=== PATIENT | male | born 1950 | race Caucasian/White ===

== ENCOUNTER 2016-07-23 09:44 | Observation (INO) | payer BC ==
[~2016-07-23] VITALS: Ht 170.2 cm; Wt 80.9 kg
[2016-07-23] MEDS ORDERED: ADENOSINE 6 MG/2 ML VIAL IV ONE ×3 (09:47→11:00)
--- NOTE | 2016-07-23 10:02 | PHYS DOC ---
Adult General Chief Complaint Chief Complaint: SHORTNESS OF BREATH HPI HPI Patient is a 66 year old male who presents with palpitations and right jaw pain. He states he felt like his heart racing while he was doing water aerobics today. He states he's had this occur approximate 6-7 years ago and he was given a medicine the ER and sent home. Does have a history of smoking abuse however he quit back in 1978. He has a history of hypertension. He states he used to be on atenolol but now is on Procardia. He denies any nausea vomiting. Review of Systems Review of Systems Constitutional: Denies fever or chills [] Eyes: Denies change in visual acuity, redness, or eye pain [] HENT: Denies nasal congestion or sore throat [] Respiratory: Denies cough or shortness of breath [] Cardiovascular: No additional information not addressed in HPI [] GI: Denies abdominal pain, nausea, vomiting, bloody stools or diarrhea [] : Denies dysuria or hematuria [] Musculoskeletal: Denies back pain or joint pain [] Integument: Denies rash or skin lesions [] Neurologic: Denies headache, focal weakness or sensory changes [] Endocrine: Denies polyuria or polydipsia [] Current Medications Current Medications Current Medications Medications (Trade) Dose Ordered Sig/Sonu Start Time Stop Time Status Last Admin Dose Admin Adenosine (Adenocard) 12 mg 1X ONCE 07/23/16 11:00 07/23/16 11:01 DC 07/23/16 09:56 12 MG Allergies Allergies Allergies Coded Allergies Type Severity Reaction Last Updated Verified Penicillins Allergy Unknown 07/23/16 Yes Physical Exam Physical Exam Constitutional: Well developed, well nourished, no acute distress, non-toxic appearance. [] HENT: Normocephalic, atraumatic, bilateral external ears normal, oropharynx moist, no oral exudates, nose normal. [] Eyes: PERRLA, EOMI, conjunctiva normal, no discharge. [] Neck: Normal range of motion, no tenderness, supple, no stridor. [] Cardiovascular: Tachycardic with regular rhythm, no murmur [] Lungs & Thorax: Bilateral breath sounds clear to auscultation [] Abdomen: Bowel sounds normal, soft, no tenderness, no masses, no pulsatile masses. [] Skin: Warm, dry, no erythema, no rash. [] Back: No tenderness, no CVA tenderness. [] Extremities: No tenderness, no cyanosis, no clubbing, ROM intact, no edema. [] Neurologic: Alert and oriented X 3, normal motor function, normal sensory function, no focal deficits noted. [] Psychologic: Affect normal, judgement normal, mood normal. [] Current Patient Data Vital Signs Vital Signs Date Time Temp Pulse Resp B/P Pulse Ox O2 Delivery O2 Flow Rate FiO2 07/23/16 11:30 72 12 99/71 99 07/23/16 09:46 97.8 Room Air 97.8 Lab Values Laboratory Tests Test 07/23/16 09:50 07/23/16 11:20 White Blood Count 8.7x10^3/uL (4.0-11.0) Red Blood Count 5.50x10^6/uL (4.30-5.70) Hemoglobin 16.8g/dL (13.0-17.5) Hematocrit 49.9% (39.0-53.0) Mean Corpuscular Volume 91fL (79-100) Mean Corpuscular Hemoglobin 31pg (25-35) Mean Corpuscular Hemoglobin Concent 34g/dL (31-37) Red Cell Distribution Width 13.5% (11.5-14.5) Platelet Count 227x10^3/uL (140-400) Neutrophils (%) (Auto) 59% (31-73) Lymphocytes (%) (Auto) 28% (24-48) Monocytes (%) (Auto) 9% (0-9) Eosinophils (%) (Auto) 4% (0-3) H Basophils (%) (Auto) 0% (0-3) Neutrophils # (Auto) 5.1x10^3uL (1.8-7.7) Lymphocytes # (Auto) 2.4x10^3/uL (1.0-4.8) Monocytes # (Auto) 0.8x10^3/uL (0.0-1.1) Eosinophils # (Auto) 0.4x10^3/uL (0.0-0.7) Basophils # (Auto) 0.0x10^3/uL (0.0-0.2) Prothrombin Time 12.7SEC (11.7-14.0) Prothrombin Time INR 1.0 (0.8-1.1) Sodium Level 145mmol/L (136-145) Potassium Level 4.0mmol/L (3.5-5.1) Chloride Level 105mmol/L (98-107) Carbon Dioxide Level 24mmol/L (21-32) Anion Gap 16 (6-14) H Blood Urea Nitrogen 29mg/dL (8-26) H Creatinine 1.3mg/dL (0.7-1.3) Estimated GFR (Cockcroft-Gault) 55.4 Glucose Level 111mg/dL (70-99) H Calcium Level 9.6mg/dL (8.5-10.1) Magnesium Level 2.0mg/dL (1.8-2.4) Total Bilirubin 0.8mg/dL (0.2-1.0) Direct Bilirubin 0.1mg/dL (0.0-0.2) Aspartate Amino Transferase (AST) 32U/L (15-37) Alanine Aminotransferase (ALT) 32U/L (16-63) Alkaline Phosphatase 80U/L (46-116) Creatine Kinase 194U/L (39-308) Creatine Kinase MB (Mass) 1.5ng/mL (0.0-3.6) Creatine Kinase MB Relative Index 0.8% (0-4) Troponin I Quantitative < 0.017ng/mL (0.000-0.055) GX-Gyr-Z-Type Natriuretic Peptide 345pg/mL (0-124) H Total Protein 7.8g/dL (6.4-8.2) Albumin 4.2g/dL (3.4-5.0) Thyroid Stimulating Hormone (TSH) 2.574uIU/mL (0.358-3.74) Urine Collection Type Unknown Urine Color Yellow Urine Clarity Clear Urine pH 6.5 Urine Specific [place] 1.010 Urine Protein Negativemg/dL (NEG-TRACE) Urine Glucose (UA) Negativemg/dL (NEG) Urine Ketones (Stick) Negativemg/dL (NEG) Urine Blood Negative (NEG) Urine Nitrite Negative (NEG) Urine Bilirubin Negative (NEG) Urine Urobilinogen Dipstick 0.2mg/dL (0.2 mg/dL) Urine Leukocyte Esterase Negative (NEG) Urine RBC Rare/HPF (0-2) Urine WBC Rare/HPF (0-4) Urine Squamous Epithelial Cells None/LPF Urine Bacteria Few/HPF (0-FEW) Urine Hyaline Casts Few/HPF Urine Mucus Slight/LPF Urine Opiates Screen Neg (NEG) Urine Methadone Screen Neg (NEG) Urine Barbiturates Neg (NEG) Urine Phencyclidine Screen Neg (NEG) Urine Amphetamine/Methamphetamine Neg (NEG) Urine Benzodiazepines Screen Neg (NEG) Urine Cocaine Screen Neg (NEG) Urine Cannabinoids Screen Neg (NEG) Urine Ethyl Alcohol Neg (NEG) Laboratory Tests 07/23/16 09:50 Laboratory Tests 07/23/16 09:50 EKG EKG EKG at 948 showed a rate of 183 bpm with supraventricular tachycardia, left axis deviation, no ST elevations, as interpreted by me. EKG at 958 after adenosine, showed sinus tachycardia [address] elevations or T-wave inversions, left axis deviation, as interpreted by me. Radiology/Procedures Radiology/Procedures [facility] [address] [place], [place] [id number] IMAGING REPORT Signed PATIENT: LAURA NEVILLE ACCOUNT: [id number] : 1950 LOCATION: ER AGE: 66 SEX: M EXAM STATUS: PRE ER ORD. PHYSICIAN: LUCITA LEACH MD REASON: chest pain PROCEDURE: PORTABLE CHEST 1V Exam performed: One view chest. Indication: chest pain Date of Service: 07/23/2016 12:02 PM Comparison: None available. Single AP upright portable view chest findings: Cardiomediastinal silhouette is within limits of normal. No acute infiltrates, effusion or pneumothorax is detected. The bony structures are normal. Impression: No acute cardiopulmonary process is detected. DICTATED and SIGNED BY: SOLITARIO LARSON MD DATE: 07/23/16 1036 CC: LUCITA LEACH MD ~ Impressions: SVT Course & Med Decision Making Course & Med Decision Making Pertinent Labs and Imaging studies reviewed. (See chart for details) Patient presented with SVT, EKG confirmed this. He was given milligrams of adenosine and then repeated with 12 mg of adenosine and then had conversion to normal sinus rhythm. His labs, chest x-ray did not show any acute abdomen allergies. Patient be admitted to the hospitalist with cardiology consultation. The patient's agreeable plans in stable condition at this time. With Dr. Casas regarding admission. 45 minutes critical care time was used on this patient excluding procedures. Dragon Disclaimer Dragon Disclaimer This electronic medical record was generated, in whole or in part, using a voice recognition dictation system. Departure Departure Impression: Primary Impression: SVT (supraventricular tachycardia) Disposition: ADMITTED INPATIENT Admitting Physician: Tobias Serna Condition: STABLE LUCITA LEACH MD Jul 23, 2016 10:02
--- NOTE | 2016-07-23 10:07 | EKG ---
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
[2016-07-23 10:12] LABS: BASO % 0 % (0-3); EOS % 4 % (0-3); HEMATOCRIT 49.9 % (39.0-53.0); HEMOGLOBIN 16.8 g/dL (13.0-17.5); LYMPH # 2.4 x10^3/uL (1.0-4.8); LYMPH % 28 % (24-48); MEAN CORPUSCULAR HEMOGLOBIN 31 pg (25-35); MEAN CORPUSCULAR HGB CONC 34 g/dL (31-37); MEAN CORPUSCULAR VOLUME 91 fL (79-100); MONO % 9 % (0-9); NEUT % 59 % (31-73); PLATELET COUNT 227 x10^3/uL (140-400); RED CELL DISTRIBUTION WIDTH 13.5 % (11.5-14.5); WHITE BLOOD COUNT 8.7 x10^3/uL (4.0-11.0)
[2016-07-23 10:27] LABS: CALCIUM 9.6 mg/dL (8.5-10.1); CREATININE 1.3 mg/dL (0.7-1.3); GFR 55.4
[2016-07-23 10:30] LABS: PROTHROMBIN TIME PATIENT 12.7 SEC (11.7-14.0)
[2016-07-23 10:32] LABS: ALBUMIN 4.2 g/dL (3.4-5.0); DIRECT BILIRUBIN 0.1 mg/dL (0.0-0.2); TOTAL BILIRUBIN 0.8 mg/dL (0.2-1.0); TOTAL PROTEIN 7.8 g/dL (6.4-8.2)
--- NOTE | 2016-07-23 10:39 | RAD ---
Exam performed: One view chest. Indication: chest pain Date of Service: 07/23/2016 12:02 PM Comparison: None available. Single AP upright portable view chest findings: Cardiomediastinal silhouette is within limits of normal. No acute infiltrates, effusion or pneumothorax is detected. The bony structures are normal. Impression: No acute cardiopulmonary process is detected.
[2016-07-23 10:41] LABS: CKMB INDEX 0.8 % (0-4); CKMB MASS 1.5 ng/mL (0.0-3.6)
--- NOTE | 2016-07-23 11:30 | EKG ---
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 RI6.01 Unconfirmed report No previous ECG available for comparison Electronically Signed On 07-29-2016 10:51:40 SOFTWARE DEPLOYMENT ENGINEER by Jcarlos Delong
[2016-07-23 11:34] LABS: BILIRUBIN,URINE NEGATIVE (NEG); GLUCOSE,URINE NEGATIVE (NEG); NITRITE,URINE NEGATIVE (NEG); PH,URINE 6.5; PROTEIN,URINE NEGATIVE (NEG-TRACE); UROBILINOGEN,URINE 0.2 mg/dL (0.2 mg/dL)
[2016-07-23 11:40] LABS: BARBITURATES NEG (NEG); BENZODIAZEPINES NEG (NEG); CANNABINOIDS NEG (NEG); COCAINE NEG (NEG); METHADONE NEG (NEG); OPIATES NEG (NEG); PHENCYCLIDINE NEG (NEG)
[2016-07-23 11:49] LABS: BACTERIA,URINE FEW /HPF (0-FEW); ETHANOL, URINE NEG (NEG); RBC,URINE RARE /HPF (0-2); WBC,URINE RARE /HPF (0-4)
--- NOTE | 2016-07-23 12:44 | PDOC2 ---
CARDIAC CONSULT DATE OF CONSULT Date of Consult DATE: 07/23/16 TIME: 12:40 REASON FOR CONSULT Reason for Consult: SVT REFERRING PHYSICIAN Referring Physician: Dr. Sanchez SOURCE Source: Chart review, Patient HISTORY OF PRESENT ILLNESS HISTORY OF PRESENT ILLNESS This is a 66 yo male who presented with complaints of palpitations. [facility] [place] [facility] [place] be began to feel uncomfortable in his chest. Reports he felt like he was "swallowing air" and was unable to take a deep breath. [place] dizzy and "stiff in the chest". Decided to come to the emergency room for further evaluation. Noted to by in SVT upon arrival. Converted to SR in ED after 6mg follow by 12mg of adenosine. Patient reports similar symptoms approximately 7-[address] on Atenolol. Lost 40-50lbs and was taken off Atenolol. Now on Procardia for HTN. No recent cardiac workup. Is compliant with medications. PAST MEDICAL HISTORY Cardiovascular: HTN Pulmonary: No pertinent hx CENTRAL NERVOUS SYSTEM: Other (no pertinent hx) GI: No pertinent hx Heme/Onc: No pertinent hx Hepatobiliary: No pertinent hx Psych: No pertinent hx Musculoskeletal: Osteoarthritis Infectious disease: No pertinent hx ENT: No pertinent hx Renal/: No pertinent hx Endocrine: No pertinent hx Dermatology: No pertinent hx PAST SURGICAL HISTORY Past Surgical History: Hernia Repair, Other (left ankle sx) FAMILY HISTORY Family History: Coronary Artery Disease (mother and father ), Hypertension SOCIAL HISTORY Smoke: No ALCOHOL: none Drugs: None Lives: with Family CURRENT MEDICATIONS CURRENT MEDICATIONS Current Medications Medications (Trade) Dose Ordered Sig/Sonu Route PRN Reason Start Time Stop Time Status Last Admin Dose Admin Adenosine (Adenocard) 6 mg 1X ONCE IV 07/23/16 11:00 07/23/16 11:01 DC 07/23/16 09:54 Adenosine (Adenocard) 12 mg 1X ONCE IV 07/23/16 11:00 07/23/16 11:01 DC 07/23/16 09:56 ALLERGIES ALLERGIES: Coded Allergies: Penicillins (Verified Allergy, Unknown, 07/23/16) ROS Review of System 14 point ROS conducted with pertinent positives noted above in HPI PHYSICAL EXAM General: Alert, Oriented X3, Cooperative, No acute distress HEENT: Atraumatic, Mucous membr. moist/pink Lungs: Clear to auscultation, Normal air movement Heart: Regular rate, Normal S1, Normal S2, No murmurs Abdomen: Soft, No tenderness Extremities: No cyanosis, No edema, Normal pulses Skin: No significant lesion Neuro: Normal speech, Sensation intact Psych/Mental Status: Mental status NL, Mood NL MUSCULOSKELETAL: Osteoarthritic changes both hands VITALS VITALS Vital Signs Date Time Temp Pulse Resp B/P Pulse Ox O2 Delivery O2 Flow Rate FiO2 07/23/16 11:30 72 12 99/71 99 07/23/16 09:46 97.8 Room Air 97.8 LABS Lab: Laboratory Tests Test 07/23/16 09:50 07/23/16 11:20 White Blood Count 8.7x10^3/uL (4.0-11.0) Red Blood Count 5.50x10^6/uL (4.30-5.70) Hemoglobin 16.8g/dL (13.0-17.5) Hematocrit 49.9% (39.0-53.0) Mean Corpuscular Volume 91fL (79-100) Mean Corpuscular Hemoglobin 31pg (25-35) Mean Corpuscular Hemoglobin Concent 34g/dL (31-37) Red Cell Distribution Width 13.5% (11.5-14.5) Platelet Count 227x10^3/uL (140-400) Neutrophils (%) (Auto) 59% (31-73) Lymphocytes (%) (Auto) 28% (24-48) Monocytes (%) (Auto) 9% (0-9) Eosinophils (%) (Auto) 4% (0-3) Basophils (%) (Auto) 0% (0-3) Neutrophils # (Auto) 5.1x10^3uL (1.8-7.7) Lymphocytes # (Auto) 2.4x10^3/uL (1.0-4.8) Monocytes # (Auto) 0.8x10^3/uL (0.0-1.1) Eosinophils # (Auto) 0.4x10^3/uL (0.0-0.7) Basophils # (Auto) 0.0x10^3/uL (0.0-0.2) Prothrombin Time 12.7SEC (11.7-14.0) Prothromb Time International Ratio 1.0 (0.8-1.1) Sodium Level 145mmol/L (136-145) Potassium Level 4.0mmol/L (3.5-5.1) Chloride Level 105mmol/L (98-107) Carbon Dioxide Level 24mmol/L (21-32) Anion Gap 16 (6-14) Blood Urea Nitrogen 29mg/dL (8-26) Creatinine 1.3mg/dL (0.7-1.3) Estimated GFR (Cockcroft-Gault) 55.4 Glucose Level 111mg/dL (70-99) Calcium Level 9.6mg/dL (8.5-10.1) Magnesium Level 2.0mg/dL (1.8-2.4) Total Bilirubin 0.8mg/dL (0.2-1.0) Direct Bilirubin 0.1mg/dL (0.0-0.2) Aspartate Amino Transf (AST/SGOT) 32U/L (15-37) Alanine Aminotransferase (ALT/SGPT) 32U/L (16-63) Alkaline Phosphatase 80U/L (46-116) Creatine Kinase 194U/L (39-308) Creatine Kinase MB (Mass) 1.5ng/mL (0.0-3.6) Creatine Kinase MB Relative Index 0.8% (0-4) Troponin I Quantitative < 0.017ng/mL (0.000-0.055) ND-Wia-D-Type Natriuretic Peptide 345pg/mL (0-124) Total Protein 7.8g/dL (6.4-8.2) Albumin 4.2g/dL (3.4-5.0) Thyroid Stimulating Hormone (TSH) 2.574uIU/mL (0.358-3.74) Urine Collection Type Unknown Urine Color Yellow Urine Clarity Clear Urine pH 6.5 Urine Specific [place] 1.010 Urine Protein Negativemg/dL (NEG-TRACE) Urine Glucose (UA) Negativemg/dL (NEG) Urine Ketones (Stick) Negativemg/dL (NEG) Urine Blood Negative (NEG) Urine Nitrite Negative (NEG) Urine Bilirubin Negative (NEG) Urine Urobilinogen Dipstick 0.2mg/dL (0.2 mg/dL) Urine Leukocyte Esterase Negative (NEG) Urine RBC Rare/HPF (0-2) Urine WBC Rare/HPF (0-4) Urine Squamous Epithelial Cells None/LPF Urine Bacteria Few/HPF (0-FEW) Urine Hyaline Casts Few/HPF Urine Mucus Slight/LPF Urine Opiates Screen Neg (NEG) Urine Methadone Screen Neg (NEG) Urine Barbiturates Neg (NEG) Urine Phencyclidine Screen Neg (NEG) Urine Amphetamine/Methamphetamine Neg (NEG) Urine Benzodiazepines Screen Neg (NEG) Urine Cocaine Screen Neg (NEG) Urine Cannabinoids Screen Neg (NEG) Urine Ethyl Alcohol Neg (NEG) ASSESSMENT/PLAN ASSESSMENT/PLAN 1. SVT Mg, TSH WNL check echo, lipids stop Procardia. start low-dose BB for rate suppression plan for event monitor at discharge consider for outpatient MPI given significant family h/o CAD and risk factors. 2. Hypertension controlled Problems: YOAN BAZAN APRN Jul 23, 2016 12:44
--- NOTE | 2016-07-23 12:56 | ACF ---
Admission Forms Criteria SUPRAVENTRICULAR ARRHYTHMIAS Clinical Indications for Admission to Inpatient Care (Place 'X' for any and all applicable criteria): Admission is indicated by ANY ONE of the following (1)(2): [X]I. Arrhythmia causing significant symptoms or findings as indicated by ANY ONE of the following: [ ]a) Chest pain [ ]b) Myocardial ischemia [ ]c) Altered mental status [ ]d) Dizziness, weakness, or light-headedness [X]e) Dyspnea or hypoxemia [ ]f) Heart failure (eg, pulmonary edema)(11) [ ]II. Initiation of antiarrhythmic drug therapy is needed in patient at high risk of adverse events as indicated by ANY ONE of the following: [ ]a) Significant structural heart disease (eg, aortic stenosis, reduced ejection fraction, cardiomyopathy, congenital heart disease) [ ]b) Underlying sinus node or atrioventricular conduction disturbances [ ]c) Prolonged QT interval [ ]d) Need for treatment with antiarrhythmic that have significant proarrhythmic potential ( procainamide) [ ]e) Patient whose sinus rhythm has not been observed on ECG [ ]III. Inpatient admission required rather than observation care because of ANY ONE of the following: [ ]a) Syncope [ ]b) Patient has automatic implanted cardioverter-defibrillator that is repeatedly firing, malfunctioning, or in need of immediate adjustment of settings beyond scope of ambulatory or observation care. [ ]c) Hemodynamic instability that is severe or persistent [ ]d) Unstable cardiac conduction defects indicated by ANY ONE of the following(19)(20)(21): [ ]a) Type II second-degree atrioventricular block [ ]b) Third-degree atrioventricular block [ ]C) New-onset left bundle branch block with suspected myocardial ischemia [ ]e) Severe electrolyte abnormalities requiring inpatient care [ ]f) Continuous intravenous infusion of anticoagulation, platelet inhibitor, vasoactive, or antiarrhythmic medication(14) [ ]g) Pulmonary artery catheter monitoring [ ]h) Repeat cardioversion necessary [ ]i) Other condition, treatment or monitoring requiring inpatient admission [ ]IV. Underlying medical condition that necessitates inpatient care (eg, thyrotoxicosis, severe acidosis) Extended stay beyond goal length of stay may be needed for(1)(17)(18): [ ]a) Persistent hemodynamic instability or continued severe arrhythmia [ ]b) Continued monitoring during initiation of certain medications (eg, some antiarrhythmics)(17)(19) [ ]c) Precipitating cause requires ongoing inpatient care (eg, severe electrolyte abnormality, systemic infection, acidosis) [ ]d) Unstable comorbidities The original [facility] content created by [facility] has been revised. The portions of the content which have been revised are identified through the use of italic text or in bold, and [facility] has neither reviewed nor approved the modified material. All other unmodified content is copyright [facility]. Please see references footnoted in the original [facility] edition 2016 Admission Criteria Met?: Yes ALEKS PARRISH Jul 23, 2016 12:56
[2016-07-23 13:30] VITALS: BP 144/95
[2016-07-23] MEDS ORDERED: BENA20TA2 PO (14:04)
[2016-07-23] MEDS ORDERED: NIFE30TA17 PO (14:04)
[2016-07-23] MEDS ORDERED: MELO-156 PO (14:04)
[2016-07-23 15:30] VITALS: BP 135/78
[2016-07-23] MEDS: METOPROLOL SUCC 24HR ER 25 MG TAB.ER.24H. PO SCH (15:57)
--- NOTE | 2016-07-23 16:13 | CARD ---
APPROVED REPORT EXAM: Two-dimensional and M-mode echocardiogram with Doppler and color Doppler. Other Information Quality : Good INDICATION Arrhythmia SVT 2D DIMENSIONS RVDd3.2 (2.9-3.5cm)Left Atrium(2D)3.9 (1.6-4.0cm) IVSd1.1 (0.7-1.1cm)Aortic Root(2D)3.6 (2.0-3.7cm) LVDd5.4 (3.9-5.9cm)LVOT Diameter2.2 (1.8-2.4cm) PWd1.0 (0.7-1.1cm)LVDs3.4 (2.5-4.0cm) FS (%) 30.0 %SV92.4 ml LVEF(%)60.0 (>50%) Aortic Valve AoV Peak Edenilson.105.8cm/sAoV VTI19.3cm AO Peak GR.4.5mmHgLVOT VTI 14.98cm AO Mean GR.2mmHg Mitral Valve MV E Bpbefpcy00.5cm/sMV DECEL [id number] MV A Iqlverch68.6cm/sE/A Ratio0.6 TDI Lateral E' P. V6.63cm/sMedial E' P. V5.34cm/s E/Lateral E'6.0E/Medial E'7.4 Tricuspid Valve TR P. Mzhedvpo241gh/sRAP AXEZWQVF1vePq TR Peak Gr.26lpOhJPUG85rsYp Pulmonary Vein S1 Eqwifhuw19.5cm/sS2 Lwnjbgqf50.48cm/s D2 Owwylmpy18.5cm/sPVa hpcfnwar393usmi LEFT VENTRICLE The left ventricle is normal size. There is normal left ventricular wall thickness. The left ventricu lar systolic function is normal and the ejection fraction is within normal range. The Ejection Fracti on is 55-60%. There is normal LV segmental wall motion. Transmitral Doppler flow pattern is Grade I-a bnormal relaxation pattern. RIGHT VENTRICLE The right ventricle is normal size. The right ventricular systolic function is normal. ATRIA The left atrium size is normal. The right atrium size is normal. The interatrial septum is intact wit h no evidence for an atrial septal defect or patent foramen ovale as noted on 2-D or Doppler imaging. AORTIC VALVE The aortic valve is calcified but opens well. Doppler and Color Flow revealed trace aortic regurgitat ion. There is no significant aortic valvular stenosis. MITRAL VALVE The mitral valve is normal in structure and function. There is no evidence of mitral valve prolapse. There is no mitral valve stenosis. Doppler and Color Flow revealed no mitral valve regurgitation note d. TRICUSPID VALVE The tricuspid valve is normal in structure and function. Doppler and Color Flow revealed trace tricus pid regurgitation. The PA pressure was estimated at 25 mmHg. There is no tricuspid valve stenosis. PULMONIC VALVE The pulmonary valve is normal in structure and function. Doppler and Color Flow revealed trace pulmon ic valvular regurgitation. There is no pulmonic valvular stenosis. GREAT VESSELS The aortic root is mildly enlarged at 3.6 cm. The ascending aorta is moderately dilated at 4.0 cm. Th e IVC is normal in size and collapses >50% with inspiration. PERICARDIAL EFFUSION There is no evidence of significant pericardial effusion. Critical Notification Critical Value: No <Conclusion> The left ventricle is normal size. The left ventricular systolic function is normal and the ejection fraction is within normal range. The Ejection Fraction is 55-60%. There is no significant aortic valvular stenosis. Doppler and Color Flow revealed trace aortic regurgitation. Doppler and Color Flow revealed no mitral valve regurgitation noted. Doppler and Color Flow revealed trace tricuspid regurgitation. The PA pressure was estimated at 25 mmHg.
--- NOTE | 2016-07-23 17:10 | PDOC1 ---
History and Physical Past Medical History Cardiovascular: HTN Pulmonary: No pertinent hx CENTRAL NERVOUS SYSTEM: Other (no pertinent hx) GI: No pertinent hx Heme/Onc: No pertinent hx Hepatobiliary: No pertinent hx Psych: No pertinent hx Infectious disease: No pertinent hx ENT: No pertinent hx Renal/: No pertinent hx Endocrine: No pertinent hx Dermatology: No pertinent hx Past Surgical History Past Surgical History: Hernia Repair, Other (left ankle sx) Family History Family History: Coronary Artery Disease (mother and father ), Hypertension Social History Smoke: No ALCOHOL: none Drugs: None Current Problem List Problem List Problems Medical Problems: (1) SVT (supraventricular tachycardia) Status: Acute Current Medications Current Medications Current Medications Medications (Trade) Dose Ordered Sig/Sonu Start Time Stop Time Status Last Admin Dose Admin Adenosine (Adenocard) 12 mg 1X ONCE 07/23/16 11:00 07/23/16 11:01 DC 07/23/16 09:56 12 MG Metoprolol Succinate (Toprol Xl) 12.5 mg DAILY 07/23/16 15:00 07/23/16 15:57 12.5 MG Allergies Allergies Allergies Coded Allergies Type Severity Reaction Last Updated Verified Penicillins Allergy Unknown 07/23/16 Yes ROS Review of System CONSTITUTIONAL: No fever or chills EYES: No recent changes SKIN: No rash or itching CARDIOVASCULAR: No chest pain, syncope, but palpitations, RESPIRATORY: No SOB or cough GASTROINTESTINAL: No nausea, vomiting or abdominal pain NEUROLOGICAL: No headaches or weakness ENDOCRINE: No cold or heat intolerance GENITOURINARY: No urgency or frequency of urination MUSCULOSKELETAL: No back pain or joint pain LYMPHATICS: No enlarged lymph nodes PSYCHIATRIC: No anxiety or depression Physical Exam Physical Exam GEN.: No apparent distress. Alert and oriented. HEENT: Head is normocephalic, atraumatic NECK: Supple. LUNGS: Clear to auscultation. HEART: RRR, S1, S2 present. Peripheral pulses intact ABDOMEN: Soft, nontender. Positive bowel sounds. EXTREMITIES: Without any cyanosis. NEUROLOGIC: Normal speech, normal tone PSYCHIATRIC: Normal affect, normal mood. SKIN: No ulcerations Vitals Vitals Vital Signs Date Time Temp Pulse Resp B/P Pulse Ox O2 Delivery O2 Flow Rate FiO2 07/23/16 15:57 63 135/78 07/23/16 15:30 98.0 18 97 Room Air 98.0 Labs Labs Laboratory Tests Test 07/23/16 09:50 07/23/16 11:20 White Blood Count 8.7x10^3/uL (4.0-11.0) Red Blood Count 5.50x10^6/uL (4.30-5.70) Hemoglobin 16.8g/dL (13.0-17.5) Hematocrit 49.9% (39.0-53.0) Mean Corpuscular Volume 91fL (79-100) Mean Corpuscular Hemoglobin 31pg (25-35) Mean Corpuscular Hemoglobin Concent 34g/dL (31-37) Red Cell Distribution Width 13.5% (11.5-14.5) Platelet Count 227x10^3/uL (140-400) Neutrophils (%) (Auto) 59% (31-73) Lymphocytes (%) (Auto) 28% (24-48) Monocytes (%) (Auto) 9% (0-9) Eosinophils (%) (Auto) 4% (0-3) Basophils (%) (Auto) 0% (0-3) Neutrophils # (Auto) 5.1x10^3uL (1.8-7.7) Lymphocytes # (Auto) 2.4x10^3/uL (1.0-4.8) Monocytes # (Auto) 0.8x10^3/uL (0.0-1.1) Eosinophils # (Auto) 0.4x10^3/uL (0.0-0.7) Basophils # (Auto) 0.0x10^3/uL (0.0-0.2) Prothrombin Time 12.7SEC (11.7-14.0) Prothromb Time International Ratio 1.0 (0.8-1.1) Sodium Level 145mmol/L (136-145) Potassium Level 4.0mmol/L (3.5-5.1) Chloride Level 105mmol/L (98-107) Carbon Dioxide Level 24mmol/L (21-32) Anion Gap 16 (6-14) Blood Urea Nitrogen 29mg/dL (8-26) Creatinine 1.3mg/dL (0.7-1.3) Estimated GFR (Cockcroft-Gault) 55.4 Glucose Level 111mg/dL (70-99) Calcium Level 9.6mg/dL (8.5-10.1) Magnesium Level 2.0mg/dL (1.8-2.4) Total Bilirubin 0.8mg/dL (0.2-1.0) Direct Bilirubin 0.1mg/dL (0.0-0.2) Aspartate Amino Transf (AST/SGOT) 32U/L (15-37) Alanine Aminotransferase (ALT/SGPT) 32U/L (16-63) Alkaline Phosphatase 80U/L (46-116) Creatine Kinase 194U/L (39-308) Creatine Kinase MB (Mass) 1.5ng/mL (0.0-3.6) Creatine Kinase MB Relative Index 0.8% (0-4) Troponin I Quantitative < 0.017ng/mL (0.000-0.055) QL-Gsl-U-Type Natriuretic Peptide 345pg/mL (0-124) Total Protein 7.8g/dL (6.4-8.2) Albumin 4.2g/dL (3.4-5.0) Thyroid Stimulating Hormone (TSH) 2.574uIU/mL (0.358-3.74) Urine Collection Type Unknown Urine Color Yellow Urine Clarity Clear Urine pH 6.5 Urine Specific [place] 1.010 Urine Protein Negativemg/dL (NEG-TRACE) Urine Glucose (UA) Negativemg/dL (NEG) Urine Ketones (Stick) Negativemg/dL (NEG) Urine Blood Negative (NEG) Urine Nitrite Negative (NEG) Urine Bilirubin Negative (NEG) Urine Urobilinogen Dipstick 0.2mg/dL (0.2 mg/dL) Urine Leukocyte Esterase Negative (NEG) Urine RBC Rare/HPF (0-2) Urine WBC Rare/HPF (0-4) Urine Squamous Epithelial Cells None/LPF Urine Bacteria Few/HPF (0-FEW) Urine Hyaline Casts Few/HPF Urine Mucus Slight/LPF Urine Opiates Screen Neg (NEG) Urine Methadone Screen Neg (NEG) Urine Barbiturates Neg (NEG) Urine Phencyclidine Screen Neg (NEG) Urine Amphetamine/Methamphetamine Neg (NEG) Urine Benzodiazepines Screen Neg (NEG) Urine Cocaine Screen Neg (NEG) Urine Cannabinoids Screen Neg (NEG) Urine Ethyl Alcohol Neg (NEG) Laboratory Tests Test 07/23/16 09:50 07/23/16 11:20 White Blood Count 8.7x10^3/uL (4.0-11.0) Red Blood Count 5.50x10^6/uL (4.30-5.70) Hemoglobin 16.8g/dL (13.0-17.5) Hematocrit 49.9% (39.0-53.0) Mean Corpuscular Volume 91fL (79-100) Mean Corpuscular Hemoglobin 31pg (25-35) Mean Corpuscular Hemoglobin Concent 34g/dL (31-37) Red Cell Distribution Width 13.5% (11.5-14.5) Platelet Count 227x10^3/uL (140-400) Neutrophils (%) (Auto) 59% (31-73) Lymphocytes (%) (Auto) 28% (24-48) Monocytes (%) (Auto) 9% (0-9) Eosinophils (%) (Auto) 4% (0-3) Basophils (%) (Auto) 0% (0-3) Neutrophils # (Auto) 5.1x10^3uL (1.8-7.7) Lymphocytes # (Auto) 2.4x10^3/uL (1.0-4.8) Monocytes # (Auto) 0.8x10^3/uL (0.0-1.1) Eosinophils # (Auto) 0.4x10^3/uL (0.0-0.7) Basophils # (Auto) 0.0x10^3/uL (0.0-0.2) Prothrombin Time 12.7SEC (11.7-14.0) Prothromb Time International Ratio 1.0 (0.8-1.1) Sodium Level 145mmol/L (136-145) Potassium Level 4.0mmol/L (3.5-5.1) Chloride Level 105mmol/L (98-107) Carbon Dioxide Level 24mmol/L (21-32) Anion Gap 16 (6-14) Blood Urea Nitrogen 29mg/dL (8-26) Creatinine 1.3mg/dL (0.7-1.3) Estimated GFR (Cockcroft-Gault) 55.4 Glucose Level 111mg/dL (70-99) Calcium Level 9.6mg/dL (8.5-10.1) Magnesium Level 2.0mg/dL (1.8-2.4) Total Bilirubin 0.8mg/dL (0.2-1.0) Direct Bilirubin 0.1mg/dL (0.0-0.2) Aspartate Amino Transf (AST/SGOT) 32U/L (15-37) Alanine Aminotransferase (ALT/SGPT) 32U/L (16-63) Alkaline Phosphatase 80U/L (46-116) Creatine Kinase 194U/L (39-308) Creatine Kinase MB (Mass) 1.5ng/mL (0.0-3.6) Creatine Kinase MB Relative Index 0.8% (0-4) Troponin I Quantitative < 0.017ng/mL (0.000-0.055) GC-Sxa-G-Type Natriuretic Peptide 345pg/mL (0-124) Total Protein 7.8g/dL (6.4-8.2) Albumin 4.2g/dL (3.4-5.0) Thyroid Stimulating Hormone (TSH) 2.574uIU/mL (0.358-3.74) Urine Collection Type Unknown Urine Color Yellow Urine Clarity Clear Urine pH 6.5 Urine Specific [place] 1.010 Urine Protein Negativemg/dL (NEG-TRACE) Urine Glucose (UA) Negativemg/dL (NEG) Urine Ketones (Stick) Negativemg/dL (NEG) Urine Blood Negative (NEG) Urine Nitrite Negative (NEG) Urine Bilirubin Negative (NEG) Urine Urobilinogen Dipstick 0.2mg/dL (0.2 mg/dL) Urine Leukocyte Esterase Negative (NEG) Urine RBC Rare/HPF (0-2) Urine WBC Rare/HPF (0-4) Urine Squamous Epithelial Cells None/LPF Urine Bacteria Few/HPF (0-FEW) Urine Hyaline Casts Few/HPF Urine Mucus Slight/LPF Urine Opiates Screen Neg (NEG) Urine Methadone Screen Neg (NEG) Urine Barbiturates Neg (NEG) Urine Phencyclidine Screen Neg (NEG) Urine Amphetamine/Methamphetamine Neg (NEG) Urine Benzodiazepines Screen Neg (NEG) Urine Cocaine Screen Neg (NEG) Urine Cannabinoids Screen Neg (NEG) Urine Ethyl Alcohol Neg (NEG) VTE Prophylaxis Ordered VTE Prophylaxis Devices: No VTE Pharmacological Prophylaxi: No BERNA VELOZ MD Jul 23, 2016 17:10
[2016-07-23] MEDS ORDERED: MELOXICAM 7.5 MG TABLET PO PRN (17:15)
--- NOTE | 2016-07-23 17:44 | HP ---
ADMIT DATE: 07/23/2016 CHIEF COMPLAINT: SVT. HISTORY OF PRESENT ILLNESS: A 66-year-old male patient with prior history of SVT nearly few years ago, presented to the ER with complaints of palpitations, symptoms started this morning while he was doing aerobic water exercises. The patient felt like ____ air with some dizziness and not able to breathe well. The patient's symptoms persisted and he came to the ER, was diagnosed with SVT upon arrival and he received 6 mg and 12 mg of adenosine, symptoms resolved. The patient had similar symptoms in the past. He denies any new changes in his lifestyle. PAST MEDICAL HISTORY AND REVIEW OF SYSTEMS: Please see my electronic H and P. LABORATORY FINDINGS: WBC 8.7, hemoglobin is 16.8, MCV 91, platelets 227. Chemistry: Sodium 145, potassium 4.0, chloride 104, carbon dioxide 24, gap is 16, creatinine 1.3. Troponin is less than 0.017. TSH 2.54. PT 12.7, INR is 1.0. Toxicology is negative. Urine protein negative, nitrites negative, leukocyte esterase negative. IMAGING STUDIES: Chest x-ray is no acute cardiopulmonary process seen. ASSESSMENT AND PLAN: 1. Supraventricular tachycardia, present on admission. 2. Hypertension. PLAN: His symptoms have been controlled so far with adenosine received in the ER. Currently, the patient is on telemetry. We will continue to do that and monitor his electrolytes so far his electrolytes such as magnesium and potassium, has been within normal range. Troponin is also normal. Echocardiogram has been ordered. Final report pending. Awaiting final Cardiology recommendations, anticipated discharge in a.m. if the patient's symptoms are improving and possible stress test as an outpatient. BERNA VELOZ MD DR: ALEX/torey JOB#: [id number] / [id number] LENORE
[2016-07-23 19:40] VITALS: BP 122/75
[2016-07-23 22:50] VITALS: BP 121/77
[2016-07-24 02:40] VITALS: BP 120/79
[2016-07-24 07:59] VITALS: BP 140/88
[2016-07-24] MEDS: METOPROLOL SUCC 24HR ER 25 MG TAB.ER.24H. PO SCH (08:50)
[2016-07-24] MEDS ORDERED: LISINOPRIL 20 MG TABLET PO SCH (09:00)
[2016-07-24] MEDS ORDERED: NIFEDIPINE ER 30 MG TAB.ER.24H PO SCH (09:00)
[2016-07-24 10:40] VITALS: BP 140/90
--- NOTE | 2016-07-24 11:33 | PDOC ---
CARDIO Progress Notes Date and Time Date of Service 07/24/16 Time of Evaluation 1030 Subjective Subjective: No Chest Pain, No shortness of breath, No Palpitations, No Dizziness Vitals Vitals Vital Signs Date Time Temp Pulse Resp B/P Pulse Ox O2 Delivery O2 Flow Rate FiO2 07/24/16 10:40 98.6 67 17 140/90 98 Room Air 98.6 Weight Weight [ ] Input and Output Intake and Output Intake and Output 07/24/16 07:00 Intake Total 580 ml Balance 580 ml Intake Oral 580 ml # Voids 4 Laboratory Labs Laboratory Tests Test 07/23/16 18:45 07/24/16 04:13 Troponin I Quantitative 0.679ng/mL (0.000-0.055) 0.418ng/mL (0.000-0.055) Triglycerides Level 101mg/dL (0-150) Cholesterol Level 184mg/dL (0-200) LDL Cholesterol, Calculated 127mg/dL (0-100) VLDL Cholesterol, Calculated 20mg/dL (0-40) HDL Cholesterol 37mg/dL (40-60) Cholesterol/HDL Ratio 5.0 Physical Exam HEENT: Neck Supple W Full Motion Chest: Symmetric LUNGS: Clear to Auscultation Heart: S1S2, RRR Abdomen: Normal Aortic Impulse Extremities: 2+ Dorsalis Pedis, No Edema Neurology: alert, oriented, follow commands Assessment Assessment 1. SVT no further arrhythmias noted overnight; continue metoprolol for rate control. echo revealed normal systolic function with an EF of 55-60% event monitor at discharge f/u in our office in 4 weeks as scheduled. 2. Hypertension controlled 3. Mild troponin elevation peak 0.679- suspected type II, demand ischemia related to SVT stable. CP free echo without and WMA consider outpatient MPI YOAN BAZAN APRN Jul 24, 2016 11:33
--- NOTE | 2016-07-24 13:51 | PDOC ---
PROGRESS NOTES Chief Complaint Chief Complaint CC: SVT History of Present Illness History of Present Illness No acute events overnight. Patient is doing well and excited for discharge. He has no complaints and understands his cardiology follow up plans. Vitals Vitals Vital Signs Date Time Temp Pulse Resp B/P Pulse Ox O2 Delivery O2 Flow Rate FiO2 07/24/16 10:40 98.6 67 17 140/90 98 Room Air 98.6 Physical Exam General: Alert, Oriented X3, Cooperative, No acute distress Heart: Regular rate, No murmurs Lungs: Clear Abdomen: Soft, No tenderness Extremities: No cyanosis, No edema Skin: No rashes, No significant lesion Labs LABS Laboratory Tests Test 07/23/16 18:45 07/24/16 04:13 Troponin I Quantitative 0.679ng/mL (0.000-0.055) 0.418ng/mL (0.000-0.055) Triglycerides Level 101mg/dL (0-150) Cholesterol Level 184mg/dL (0-200) LDL Cholesterol, Calculated 127mg/dL (0-100) VLDL Cholesterol, Calculated 20mg/dL (0-40) HDL Cholesterol 37mg/dL (40-60) Cholesterol/HDL Ratio 5.0 Review of Systems Review of Systems Denies chest pain and shortness of breath. Denies fever and chills. Assessment and Plan Assessmemt and Plan Problems Medical Problems: (1) SVT (supraventricular tachycardia) Status: Acute ASSESSMENT AND PLAN: 1. Supraventricular tachycardia, present on admission. 2. Hypertension. Cardiology is following, their input and recommendations are appreciated. Per cardiology, continue low dose beta dianelys. Outpatient follow up with cardiology has been scheduled. Plan for probable discharge home today with cardiac event monitor. Problems: Comment Review of Relevant I have reviewed the following items cherry (where applicable) has been applied. Labs Laboratory Tests Test 07/23/16 09:50 07/23/16 11:20 07/23/16 18:45 07/24/16 04:13 White Blood Count 8.7x10^3/uL (4.0-11.0) Red Blood Count 5.50x10^6/uL (4.30-5.70) Hemoglobin 16.8g/dL (13.0-17.5) Hematocrit 49.9% (39.0-53.0) Mean Corpuscular Volume 91fL (79-100) Mean Corpuscular Hemoglobin 31pg (25-35) Mean Corpuscular Hemoglobin Concent 34g/dL (31-37) Red Cell Distribution Width 13.5% (11.5-14.5) Platelet Count 227x10^3/uL (140-400) Neutrophils (%) (Auto) 59% (31-73) Lymphocytes (%) (Auto) 28% (24-48) Monocytes (%) (Auto) 9% (0-9) Eosinophils (%) (Auto) 4% (0-3) Basophils (%) (Auto) 0% (0-3) Neutrophils # (Auto) 5.1x10^3uL (1.8-7.7) Lymphocytes # (Auto) 2.4x10^3/uL (1.0-4.8) Monocytes # (Auto) 0.8x10^3/uL (0.0-1.1) Eosinophils # (Auto) 0.4x10^3/uL (0.0-0.7) Basophils # (Auto) 0.0x10^3/uL (0.0-0.2) Prothrombin Time 12.7SEC (11.7-14.0) Prothromb Time International Ratio 1.0 (0.8-1.1) Sodium Level 145mmol/L (136-145) Potassium Level 4.0mmol/L (3.5-5.1) Chloride Level 105mmol/L (98-107) Carbon Dioxide Level 24mmol/L (21-32) Anion Gap 16 (6-14) Blood Urea Nitrogen 29mg/dL (8-26) Creatinine 1.3mg/dL (0.7-1.3) Estimated GFR (Cockcroft-Gault) 55.4 Glucose Level 111mg/dL (70-99) Calcium Level 9.6mg/dL (8.5-10.1) Magnesium Level 2.0mg/dL (1.8-2.4) Total Bilirubin 0.8mg/dL (0.2-1.0) Direct Bilirubin 0.1mg/dL (0.0-0.2) Aspartate Amino Transf (AST/SGOT) 32U/L (15-37) Alanine Aminotransferase (ALT/SGPT) 32U/L (16-63) Alkaline Phosphatase 80U/L (46-116) Creatine Kinase 194U/L (39-308) Creatine Kinase MB (Mass) 1.5ng/mL (0.0-3.6) Creatine Kinase MB Relative Index 0.8% (0-4) Troponin I Quantitative < 0.017ng/mL (0.000-0.055) 0.679ng/mL (0.000-0.055) 0.418ng/mL (0.000-0.055) DH-Vzy-L-Type Natriuretic Peptide 345pg/mL (0-124) Total Protein 7.8g/dL (6.4-8.2) Albumin 4.2g/dL (3.4-5.0) Thyroid Stimulating Hormone (TSH) 2.574uIU/mL (0.358-3.74) Urine Collection Type Unknown Urine Color Yellow Urine Clarity Clear Urine pH 6.5 Urine Specific [place] 1.010 Urine Protein Negativemg/dL (NEG-TRACE) Urine Glucose (UA) Negativemg/dL (NEG) Urine Ketones (Stick) Negativemg/dL (NEG) Urine Blood Negative (NEG) Urine Nitrite Negative (NEG) Urine Bilirubin Negative (NEG) Urine Urobilinogen Dipstick 0.2mg/dL (0.2 mg/dL) Urine Leukocyte Esterase Negative (NEG) Urine RBC Rare/HPF (0-2) Urine WBC Rare/HPF (0-4) Urine Squamous Epithelial Cells None/LPF Urine Bacteria Few/HPF (0-FEW) Urine Hyaline Casts Few/HPF Urine Mucus Slight/LPF Urine Opiates Screen Neg (NEG) Urine Methadone Screen Neg (NEG) Urine Barbiturates Neg (NEG) Urine Phencyclidine Screen Neg (NEG) Urine Amphetamine/Methamphetamine Neg (NEG) Urine Benzodiazepines Screen Neg (NEG) Urine Cocaine Screen Neg (NEG) Urine Cannabinoids Screen Neg (NEG) Urine Ethyl Alcohol Neg (NEG) Triglycerides Level 101mg/dL (0-150) Cholesterol Level 184mg/dL (0-200) LDL Cholesterol, Calculated 127mg/dL (0-100) VLDL Cholesterol, Calculated 20mg/dL (0-40) HDL Cholesterol 37mg/dL (40-60) Cholesterol/HDL Ratio 5.0 Laboratory Tests Test 07/23/16 18:45 07/24/16 04:13 Troponin I Quantitative 0.679ng/mL (0.000-0.055) 0.418ng/mL (0.000-0.055) Triglycerides Level 101mg/dL (0-150) Cholesterol Level 184mg/dL (0-200) LDL Cholesterol, Calculated 127mg/dL (0-100) VLDL Cholesterol, Calculated 20mg/dL (0-40) HDL Cholesterol 37mg/dL (40-60) Cholesterol/HDL Ratio 5.0 Medications Current Medications Adenosine (Adenocard) 6 mg STK-MED ONCE IV ; Start 07/23/16 at 09:47; Stop 07/23 at 09:48; Status DC Adenosine (Adenocard) 6 mg 1X ONCE IV Last administered on 07/23/16 09:54; Start 07/23/16 at 11:00; Stop 07/23/16 at 11:01; Status DC Adenosine (Adenocard) 12 mg 1X ONCE IV Last administered on 07/23/16 09:56; Start 07/23/16 at 11:00; Stop 07/23/16 at 11:01; Status DC Metoprolol Succinate (Toprol Xl) 12.5 mg DAILY PO Last administered on 08:50; Start 07/23/16 at 15:00 Meloxicam (Mobic) 7.5 mg PRN BID PRN PO PAIN; Start 07/23/16 at 17:15 Nifedipine (Procardia Xl) 30 mg DAILY PO ; Start 07/24/16 at 09:00; Stop 07/24/16 at 09:00; Status DC Lisinopril (Prinivil) 20 mg DAILY PO Last administered on 07/24/16 08:50; Start 07/24/16 at 09:00 Active Scripts Active Reported Meloxicam 7.5 Mg Tablet 1 Tab PO BID PRN Benazepril Hcl 20 Mg Tablet 1 Tab PO DAILY Nifedipine Er (Nifedipine) 30 Mg Tab.er.24 1 Tab PO DAILY Vitals/I & O Vital Sign - Last 24 Hours 07/23/16 07/23/16 07/23/16 07/23/16 14:00 15:30 15:57 19:40 Temp 98.0 97.7 98.0 97.7 Pulse 62 63 63 Resp 18 18 B/P 135/78 135/78 122/75 Pulse Ox 97 94 O2 Delivery Room Air Room Air Room Air 07/23/16 07/24/16 07/24/16 07/24/16 22:50 02:40 07:59 08:00 Temp 98.4 97.8 97.8 98.4 97.8 97.8 Pulse 55 53 62 Resp 18 18 18 B/P 121/77 120/79 140/88 Pulse Ox 97 99 98 O2 Delivery Room Air Room Air Room Air Room Air 07/24/16 07/24/16 07/24/16 08:50 08:50 10:40 Temp 98.6 98.6 Pulse 62 62 67 Resp 17 B/P 140/88 140/88 140/90 Pulse Ox 98 O2 Delivery Room Air Intake and Output 07/23/16 07/23/16 07/24/16 15:00 23:00 07:00 Intake Total 220 ml 360 ml Balance 220 ml 360 ml DAVID PUENTE III, DO Jul 24, 2016 13:51
[2016-07-24 14:42] VITALS: BP 133/87
[2016-07-24] MEDS ORDERED: METO25TA9 PO (15:17)
== END 2016-07-24 17:05 | disposition home or self-care (01) ==
LOC: ER 09:44 → 2 SOUTH 12:30
PROVIDERS: ADMIT Internal Medicine; ATTEND Internal Medicine
DX: I47.1 Supraventricular tachycardia (principal); I10 Essential (primary) hypertension; R00.2 Palpitations; R42 Dizziness and giddiness; Z86.79 Personal history of other diseases of the circulatory system; Z87.891 Personal history of nicotine dependence
CPT/HCPCS: 36415; 71010; 80048; 80061; 80076; 81001; 82553; 83735; 83880; 84443; 84484; 85027; 85610; 93005; 93306; 96374; 96375; 99285; G0378; G0481; J0153; G0379

== ENCOUNTER → 2020-02-07 | Outpatient (CLI) | payer MEDICARE, BC ==
[~2020-02-07] MED LIST: AMLO10TA8 PO; ASCO500C PO; ASPI-630 PO; ATOR10TA60 PO; BENA20TA4 PO; CHOL500050 PO; LUTE40CA PO; MELO7.5T29 PO; METO-239 PO; MULT-121 PO; NIFE30TA95 PO; OMEG1CAP38 PO; RESV50CA PO; WHITE WILLOW BARK PO; [UNRECOGNIZED DRUG - CODE] PO
[2020-02-07 09:30] LABS: BASO % 1 % (0-3); EOS # 0.3 x10^3/uL (0.0-0.7); EOS % 5 % (0-3); HEMATOCRIT 48.5 % (39.0-53.0); HEMOGLOBIN 16.6 g/dL (13.0-17.5); LYMPH # 1.4 x10^3/uL (1.0-4.8); LYMPH % 26 % (24-48); MEAN CORPUSCULAR HEMOGLOBIN 32 pg (25-35); MEAN CORPUSCULAR HGB CONC 34 g/dL (31-37); MEAN CORPUSCULAR VOLUME 93 fL (79-100); MONO # 0.5 x10^3/uL (0.0-1.1); MONO % 9 % (0-9); NEUT # 3.1 x10^3/uL (1.8-7.7); NEUT % 59 % (31-73); PLATELET COUNT 174 x10^3/uL (140-400); RED BLOOD COUNT 5.19 x10^6/uL (4.30-5.70); RED CELL DISTRIBUTION WIDTH 13.1 % (11.5-14.5); WHITE BLOOD COUNT 5.2 x10^3/uL (4.0-11.0)
[2020-02-07 09:53] LABS: ANION GAP 8 (6-14); BLOOD UREA NITROGEN 21 mg/dL (8-26); CALCIUM 9.1 mg/dL (8.5-10.1); CARBON DIOXIDE 27 mmol/L (21-32); CHLORIDE 105 mmol/L (98-107); GFR 74.3; GLUCOSE 89 mg/dL (70-99); POTASSIUM 4.2 mmol/L (3.5-5.1); SODIUM 140 mmol/L (136-145)
[2020-02-07 09:56] LABS: C-REACTIVE PROTEIN < 0.5 mg/L (0-3.3)
--- NOTE | 2020-02-07 12:33 | EKG ---
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
--- NOTE | 2020-02-07 16:39 | RAD ---
Single view of the chest. 02/07/2020 9:06 AM Indication: Reason: joint prehab class-hx hypertension/preop eval / Spl. Instructions: / History: Comparison: Chest radiograph July 23, 2019 Findings: There is no pneumothorax or effusion. Mild diffuse interstitial coarsening is noted throughout the lungs. No focal infiltrate is seen. Heart size is normal. Left shoulder arthroplasty is new since June 2016. Tortuosity of the thoracic aorta is similar. IMPRESSION: 1. Mild diffuse interstitial coarsening without acute cardiopulmonary process Electronically signed by: Aroldo Gimenez MD (02/07/2020 4:36 PM) [id number]
[2020-02-08 02:08] LABS: HEMOGLOBIN A1C 5.2 % (4.8-5.6)
== END | disposition home or self-care (01) ==
LOC: SURGPAT 13:01
PROVIDERS: ATTEND Orthopaedic Surgery
DX: Z01.818 Encounter for other preprocedural examination (principal); M17.11 Unilateral primary osteoarthritis, right knee; I10 Essential (primary) hypertension; J84.89 Other specified interstitial pulmonary diseases; Q25.46 Tortuous aortic arch; Z96.651 Presence of right artificial knee joint
CPT/HCPCS: 36415; 71046; 80048; 82040; 82306; 83036; 85025; 85610; 85730; 86140; 87641; 93005

== ENCOUNTER → 2020-02-17 | Outpatient (CLI) | payer MEDICARE, BC | END | disposition home or self-care (01) | LOC: LAB 15:25 | PROVIDERS: ATTEND Orthopaedic Surgery | DX: Z01.812 Encounter for preprocedural laboratory examination (principal); M17.11 Unilateral primary osteoarthritis, right knee; Z96.651 Presence of right artificial knee joint; Z20.828 Contact with and (suspected) exposure to other viral communicable diseases | CPT/HCPCS: U0003-CS ==

== ENCOUNTER 2020-02-22 06:05 | Inpatient (IN) | payer BC, MEDICARE ==
--- NOTE | 2020-02-21 21:00 | PDOC1 ---
History and Physical Date of Admission Date of Admission 02/22/20 Identification/Chief Complaint Chief Complaint right knee osteoarthritis pain Source Source: Chart review History of Present Illness History of Present Illness 69 year old man with right and left knee osteoarthritis pain and remote left ankle fracture malunion, and left calcaneus fracture. Knee pain interferes with walking and daily activities, and quality of life. He has had multiple cortisone injections, and tried other nonoperative treatment for knee osteoarthritis. He is having difficulty with extended walking or use of stairs. He is interested in having his right knee replaced. The patient used to be a smoker but quit 30 years ago. No history of diabetes. He is allergic to penicillin. No nickel or metal allergy. He is planning on retiring after having his knee replaced. Past Medical History Past Medical History Essential hypertension, SVT, high cholesterol Cardiovascular: HTN Pulmonary: No pertinent hx CENTRAL NERVOUS SYSTEM: Other GI: No pertinent hx Heme/Onc: No pertinent hx Hepatobiliary: No pertinent hx Psych: No pertinent hx Musculoskeletal: Osteoarthritis Infectious disease: No pertinent hx Renal/: No pertinent hx Endocrine: No pertinent hx Past Surgical History Past Surgical History: Hernia Repair, Colon Resection, Other (Left ankle surge ry) Family History Family History: Coronary Artery Disease, Hypertension Social History Smoke: Quit ALCOHOL: none Drugs: None Current Medications Current Medications Current Medications Morphine Sulfate 5 mg/Ketorolac Tromethamine 30 mg/Ropivacaine 60 ml/Epinephrine HCl 0.5 mg/Sodium Chloride 100 ml @ 100 mls/hr 1X ONCE INT ART ; Start 02/21 at 06:00; Stop 02/22/20 at 06:59 Meloxicam (Mobic) 15 mg 1X PREOP PRN PO PRIOR TO PROCEDURE; Start 02/22/20 at 06:00; Stop 02/22/20 at 18:00 Acetaminophen (Tylenol) 1,000 mg 1X PREOP PRN PO PRIOR TO PROCEDURE; Start 02/22/20 at 06:00; Stop 02/22/20 at 18:00 Clindamycin Phosphate 50 ml @ 100 mls/hr 1X PREOP PRN IV PRIOR TO PROCEDURE; Start 02/22/20 at 06:00; Stop 02/22/20 at 18:00 Tranexamic Acid 1000 mg/Sodium Chloride 60 ml @ 60 mls/hr 1X PERIOP ONCE INJ ; Start 02/22/20 at 06:00; Stop 02/22/20 at 06:59 Tranexamic Acid 1000 mg/Sodium Chloride 60 ml @ 60 mls/hr 1X PERIOP ONCE INJ ; Start 02/22/20 at 08:00; Stop 02/22/20 at 08:59 Active Scripts Active Reported Vitamin D3 (Cholecalciferol (Vitamin D3)) 1,250 Mcg Capsule 2,000 Units PO DAILY [white willow bark] 400 Mg PO BID Resveratrol 50 Mg Capsule 50 Mg PO DAILY Lutein 40 Mg Capsule 40 Mg PO DAILY L-Arginine (Arginine Hcl) 1,000 Mg Tablet 500 Mg PO DAILY Vitamin C (Ascorbic Acid) 500 Mg Capsule.er 1,000 Mg PO DAILY Multiple Vitamins (Multivitamin) 1 Each Tablet 1 Each PO DAILY Atorvastatin Calcium 10 Mg Tablet 10 Mg PO HS Amlodipine Besylate 10 Mg Tablet 10 Mg PO HS Aspirin 81 Mg Tab.chew 81 Mg PO DAILY Seadrift 3 Fish Oil Softgel (Seadrift-3 Fatty Acids/Fish Oil) 1 Each Capsule.dr 1 Each PO HS Metoprolol Succinate ( Xl ) (Metoprolol Succinate) 25 Mg Tab.er.24h 0.5 PO DAILY Meloxicam 7.5 Mg Tablet 1 Tab PO BID PRN Benazepril Hcl 20 Mg Tablet 1 Tab PO BID Allergies Allergies: Coded Allergies: Penicillins (Verified Allergy, Unknown, 07/23/16) Physical Exam General: Alert, Cooperative HEENT: Atraumatic Lungs: Normal air movement Heart: RRR Abdomen: Soft Extremities: No clubbing, No cyanosis, No edema, Normal pulses Skin: No significant lesion Images Images Report reviewed, images independently reviewed. [facility] [address] [place] [address] IMAGING REPORT Signed PATIENT: LAURA NEVILLE ACCOUNT: [id number] : 1950 LOCATION: [facility] AGE: 69 SEX: M EXAM STATUS: PRE CLI ORD. PHYSICIAN: DAYDAY DUNCAN MD REASON: PROCEDURE: KNEE BILAT 3V EXAM: Bilateral knees, 3 views. HISTORY: Pain. COMPARISON: 09/28/2018 FINDINGS: 3 views of both knees are obtained. There is severe bilateral medial and right lateral compartment joint space narrowing with subchondral sclerosis and spurring. There is bilateral genu varus. There is moderate right and mild left patellofemoral compartment spurring. There are small left greater than right joint effusions. There are vascular calcifications. There is no fracture. IMPRESSION: 1. Severe bilateral medial and right lateral compartment predominant osteoarthritis of both knees with genu varus and small left greater than right joint effusions. 2. No acute osseous finding. Electronically signed by: Sadie Blevins MD (01/17/2020 4:47 PM) [facility] DICTATED and SIGNED BY: SADIE BLEVINS MD DATE: 01/17/20 6631 VTE Prophylaxis Ordered VTE Prophylaxis Devices: Yes VTE Pharmacological Prophylaxi: No Assessment/Plan Assessment/Plan He has significant right knee osteoarthritis. We discussed the risks, benefits and alternatives of robotic right TKA. All of his questions were answered and he desires to proceed with surgery today. Justifications for Admission Other Justification DAYDAY DUNCAN MD Feb 21, 2020 21:00
[2020-02-22] VITALS (15 sets, daily range): BP systolic 100–134; BP diastolic 55–76
[~2020-02-22] VITALS: Ht 167.6 cm; Wt 92.1 kg
[~2020-02-22 06:05] MED LIST changes: +ACETAMINOPHEN 500 MG TABLET PO PRN; +MELOXICAM 7.5 MG TABLET PO PRN; +MORPHINE SULFATE 5 MG, KETOROLAC 30MG VIAL 30 MG, ROPIVacaine 0.5% PF 60 ML, EPINEPHrin... INT ART ONE; +TRANEXAMIC ACID 1,000 MG in IV NS 50ML -- 1ST BAG INJ ONE
[2020-02-22] MEDS ORDERED: IV RINGERS,LACTATED 1000ML 1,000 ML IV SCH (06:30)
[2020-02-22] MEDS ORDERED: BUPIVACAINE MPF 0.25% 30 ML VIAL. ONE (06:53)
[2020-02-22] MEDS ORDERED: methylPREDNISolone ACETATE 80 MG/ML VIAL. ONE (06:54)
[2020-02-22] MEDS ORDERED: PROPOFOL 10 MG/ML (20ML) VIAL. IV ONE (06:54)
[2020-02-22] MEDS ORDERED: LIDOCAINE 2% PF 5 ML VIAL. ONE (06:54)
[2020-02-22] MEDS ORDERED: VANCOMYCIN 1 GM VIAL. ONE ×2 (06:54→07:02)
[2020-02-22] MEDS ORDERED: TOBRAMYCIN POWDER 1.2 GM VIAL. ONE (06:54)
[2020-02-22] MEDS ORDERED: fentaNYL PF VIAL 100 MCG/2 ML VIAL ONE ×2 (06:54→08:00)
[2020-02-22] MEDS: CLINDAMYCIN 900MG PREMIX 50 ML IV PRN ×2 (07:24→13:42)
[2020-02-22] MEDS ORDERED: DEXAMETHASONE SOD PHOS 4 MG/ML VIAL ONE (07:42)
[2020-02-22] MEDS ORDERED: SEVOFLURANE 61 TO 120 MINUTES. IH ONE (07:42)
[2020-02-22] MEDS ORDERED: ONDANSETRON PF 4 MG/2 ML VIAL. ONE (07:42)
[2020-02-22] MEDS ORDERED: ePHEDrine PF IN SALINE 50 MG/10 ML SYRINGE. IV ONE (07:45)
[2020-02-22] MEDS ORDERED: TRANEXAMIC ACID 1,000 MG in IV NS 50ML -- 2ND BAG INJ ONE (08:00)
[2020-02-22] MEDS ORDERED: PHENYLEPHRINE in 0.9% NACL PF 1 MG/10 ML SYRINGE. IV ONE ×2 (08:39→11:45)
--- NOTE | 2020-02-22 10:31 | PDOC4 ---
Operative Note Operative Note Date of Procedure: February 22, 2020 Pre-Op Diagnosis: * Unilateral primary osteoarthritis, right knee. M17.11 * Unilateral primary osteoarthritis, left knee. M17.12 Post-Op Diagnosis: same Procedure: * Right total knee arthroplasty with patella resurfacing, robotic assisted, CPT 71164 * Left knee corticosteroid injection CPT 23563 Surgeon: Dayday Omer MD Stroboscope Operator: JOSIAS Jackson, Ruben BLACKMAN Anesthesia: General EBL: 150 mL Specimens Obtained: right knee bone and soft tissue Complications: none Drains: Hemovac plus pain catheter Tourniquet time: 86 Minutes Tourniquet Pressure: 300 mm Hg Indications for Procedure: Knee arthritis pain, affecting quality of life, unrelieved by nonoperative management Findings: Severe osteoarthritis with bone on bone contact in all three compartments Implants: Butler & Nephew Journey II Total Knee System, Size 6 right bicruciate stabilized Journey II BCS cobalt chrome femoral component, size 6 right Journey nonporous tibial baseplate, size 5-6 15 mm right Journey II BCS XLPE articular insert, 35 mm oval Gloria II resurfacing patellar component Procedure in Detail: The patient was identified in the preoperative holding area, and the correct right lower extremity was marked by me. The patient was taken to the operating room where the patient was anesthetized by the Department of Anesthesia. Preoperative antibiotics were given intravenously. Tranexamic acid 1 g was given intravenously for intraoperative hemostasis. A "time-out" procedure was performed. The patient was positioned supine on the operative table with a tourniquet on the upper right thigh. A right hip bump and heel bump were attached to the operating table for later intraoperative positioning. Under sterile technique and after sterile skin prep the left knee was injected with 80 mg of Depo-Medrol and 1 mL of bupivacaine. The right lower limb was thoroughly scrubbed, then sterile Chloraprep solution was applied, and the limb was draped in sterile fashion. The operating team wore exhaust ventilated hoods with [employer] Personal Protection Toga Zippered Peel-Away protection system. An impervious stockinet and an adhesive drape were used such that the skin was entirely covered. The limb was exsanguinated with an Esmarch bandage, and the tourniquet was inflated. A midline skin incision was made with a scalpel using the patella and tibial tubercle as landmarks. Electrocautery was used for hemostasis. My nursing home assistant administrator used rake retractors and a laparotomy sponge. A medial parapatellar arthrotomy incision was used with extension into the distal quadriceps tendon. The patella was retracted laterally and Hohmann retractors were now used by my nursing home assistant administrator. Excess synovium, the menisci, and the cruciate ligaments were resected sharply. A periarticular multimodal ropivacaine anesthetic injection was used in the suprapatellar pouch and distal quadriceps muscle. The patella was everted and exposed. The patella thickness was measured with a caliper, and then cut freehand with a saw, using caliper measurements to assess the resection. The lateral retinaculum was partially released from the lateral patella using electrocautery. Rongeurs were used to make sure there were no remaining exposed patellar osteophytes medially or laterally. The patella was sized, and then drilled for an oval three-peg patella component. The tibial tracker array for the NAVIO system was applied to the tibial crest four finger breadths below the tibial tubercle, using percutaneous incisions and bicortical pins. The femoral tracker array was applied outside of the original incision using two separate stab incisions using bicortical pins. Checkpoint verification pins were applied to the femur and tibia. Using the point probe, the medial and lateral malleoli were localized and the locations were stored. The center of the tibia was noted at the anterior cruciate ligament insertion and stored. The center of the femur was marked at the intersection of Whitesidess line with the transepicondylar axis. The hip center calculation was performed with range of motion of the hip. The femur neutral position was identified, and simulated weightbearing was performed with axial compression on the foot. Range of motion without stress was performed and the data collected. Range of motion with valgus stress, and range of motion with varus stress data collection was also performed. Rotational references include the Whitesidess line, and the trans-epicondylar axis. The femoral articular surface was now mapped in 3 dimensions using the point probe and digital data collected. The tibial condyle articular surfaces and cortical edges were mapped in 3 dimensions using the point probe including the medial and lateral tibial plateau. Implant planning was now performed on-screen with manipulation of the implant sizes, cut thicknesses and gaps, component rotation, component flexion/extension and component varus/valgus until satisfactory ligament balance, alignment and stability of the knee was expected throughout the range of motion. My nursing home assistant administrator held a Hohmann retractor, a medial Z-retractor, and an [facility] retractor to protect the medial and lateral collateral ligaments, the patellar tendon, the skin and the other soft tissues. The point probe was used to confirm the location of the checkpoint verification pins. The distal femoral surface was now prepared using the [place]spach brain with footpedal, and the NAVIO bueno ndpiece for bone removal to the previously planned distal femoral resection. The crosshairs at the pin locations were marked by using a mallet and the point probe for definitive location. A 5-in-1 Journey II cutting guide was then applied and the position was checked with the virtual ángel wing from the NAVIO to ensure proper placement as the pins were applied. The posterior, anterior, and all chamfer cuts were made with the oscillating saw. Excess bone was removed with an osteotome and rongeurs. The tibial cutting guide was applied, positioned using the NAVIO virtual ángel wing, and secured to the upper tibia using three pins at the previously planned location. The virtual ángel wing was used to confirm the resection depth, slope and coronal alignment. The upper tibia was cut made with an oscillating saw. My nursing home assistant administrator held Hohmann retractors and a posterior cruciate ligament retractor to protect the medial and lateral collateral ligaments, the patellar tendon, the skin, the peroneal nerve and the other soft tissues. The upper tibia was sized with a trial baseplate. The posterior compartment was cleared of osteophytes and loose bodies. The periarticular anesthetic injection was used in the posterior compartment. The box cut for a posterior stabilized component was made. A preliminary reduction was performed with a trial femur, trial tibial baseplate and trial polyethylene. The NAVIO system was used to confirm range of motion, and postoperative stressed gap assessment. No additional releases were required. The stability was assessed using different thicknesses of tibial articular surface to find satisfactory stability and good range of motion. The rotation of the tibial component was marked on the upper tibia. Final trial reduction was now performed verifying patella tracking and tibiofemoral stability and alignment. The bone pins and tracker arrays were removed, and the checkpoint verification pins were removed. The tibia preparation was completed with a drill, saw, and fin punch at the previously noted rotation. The final implants were verified and opened. Outer gloves were changed by the operating team. Betadine lavage was used. The bone cuts were irrigated with saline using the Nayan InterPulse device and then dried with suction and laparotomy sponges. Two packages of Butler + Nephew Rally HV bone cement were mixed in powdered form with Vancomycin 1gm and Tobramycin 1.2 gm, and then vacuum-mixed with the monomer, and placed into a cement gun. The cut surfaces of the bone were thoroughly dried with suction and with laparotomy sponges for cement interdigitation. The final components were cemented into place. The knee was ke pt at full extension while the cement hardened, and excess cement was removed. Tranexamic acid 1 g was redosed intravenously for additional intraoperative hemostasis. The tourniquet was released, and electrocautery was used for hemostasis. A final periarticular anesthetic injection was used for pain relief. The bone pin sites on the tibial crest were closed with #3-0 Nylon sutu res. A final check of [id number] and stability was made, and the polyethylene implant final size was chosen. The polyethylene implant was secured to the tibial baseplate, and the knee was reduced a final time and range of motion and stability was confirmed. Thorough irrigation was used. A pain catheter, and a 15 Fr Hemovac were inserted. Topical Vancomycin 1 gm was used during the closure. The arthrotomy was closed with interrupted mgcjoj-bh-qjacs #1 Vicryl suture. The arthrotomy incision was then run with #1 STRATAFIX Symmetric PDS Plus Knotless suture. The subcutaneous tissues were approximated initially with #2-0 Vicryl inverted interrupted sutures by my nursing home assistant administrator. Next the subcuticular layer was approximated in a running fashion with #3-0 STRATAFIX suture by my nursing home assistant administrator. The skin incision was then covered and reinforced by my nursing home assistant administrator with Acticoat, followed by a MERARI single use negative pressure wound therapy dressing Soft roll and an Puma wrap were applied. Needle and sponge counts were correct. There were no apparent complications. The patient returned to the recovery room in stable condition. DAYDAY OMER MD Feb 22, 2020 10:31
[2020-02-22] MEDS ORDERED: DEXTROSE 50% 25 GM / 50ML DISP.SYRIN. IV PRN (10:45)
[2020-02-22] MEDS ORDERED: 0.9 % SODIUM CHLORIDE 10 ML DISP.SYRIN. IV PRN (10:45)
[2020-02-22] MEDS ORDERED: CALCIUM CARBONATE 500 MG TAB.CHEW PO PRN (10:45)
[2020-02-22] MEDS ORDERED: diphenhydrAMINE 50 MG/ML VIAL IVP PRN (10:45)
[2020-02-22] MEDS ORDERED: MORPHINE SULFATE 4 MG/ML VIAL. IVP PRN (10:45)
[2020-02-22] MEDS ORDERED: PROCHLORPERAZINE 5 MG TABLET. PO PRN (10:45)
[2020-02-22] MEDS ORDERED: ZOLPIDEM 5 MG TABLET. PO PRN (10:45)
[2020-02-22] MEDS ORDERED: fentaNYL PF VIAL 100 MCG/2 ML VIAL IVP PRN ×5 (10:45→13:15)
[2020-02-22] MEDS ORDERED: METOCLOPRAMIDE HCL 10 MG/2 ML VIAL. IVP PRN (10:45)
[2020-02-22] MEDS ORDERED: ESMOLOL 100 MG/10 ML VIAL. IVP ONE ×2 (11:05→11:45)
[2020-02-22] MEDS ORDERED: PHENYLEPHRINE 10 MG/ML VIAL. ONE (11:08)
[2020-02-22] MEDS: ESMOLOL 100 MG/10 ML VIAL. IVP PRN ×4 (11:11→11:21)
--- NOTE | 2020-02-22 11:32 | EKG ---
[facility] [address] [place] [address] Test Date: 2020-02-22 Test Time: 11:20:05 Pat Name: LAURA NEVILLE Department: Room: Gender: M Tile Edger: DMITRY : 1950 Requested By: ALLEGRA JOVEL Order Number: [id number] Reading MD: Adiel Ingram Measurements Intervals [place]h Rate: 142 P: 180 NV: 168 QRS: -31 QRSD: 88 T: 21 QT: 238 QTc: 366 Interpretive Statements SUPRAVENTRICULAR TACHYCARDIA ABNORMAL LEFT AXIS DEVIATION LEFT ANTERIOR FASCICULAR BLOCK ABNORMAL ECG Electronically Signed On 02-23-2020 12:22:05 CDT by Adiel Ingram
[2020-02-22] MEDS ORDERED: ALBUMIN HUMAN 5% 500 ML IV ONE (11:34)
[2020-02-22] MEDS: ONDANSETRON PF 4 MG/2 ML VIAL. IVP SCH ×2 (12:00→18:00)
[2020-02-22] MEDS: ONDANSETRON ODT 4 MG TAB.RAPDIS. PO SCH ×2 (12:00→18:00)
--- NOTE | 2020-02-22 12:00 | RAD ---
Examination: KNEE RIGHT 2V History: POST OP / Comparison/Correlation: 01/17/2020 preoperative x-ray exam Findings: Frontal and lateral postoperative views of the right knee were obtained. Total right knee joint arthroplasty is present. Drainage catheter tubing is present. Soft tissue gas is present. No fracture or bone destruction. Vascular calcifications noted. Impression: Total right knee arthroplasty is intact. Postoperative findings. Electronically signed by: Mauro Judge MD (02/22/2020 11:57 AM) [id number]
--- NOTE | 2020-02-22 12:21 | PDOC2 ---
JO ANN ALCARAZ PHLEBOTOMY MANAGER 02/22/20 1221: CARDIAC CONSULT DATE OF CONSULT Date of Consult DATE: 02/22/20 TIME: 12:06 REASON FOR CONSULT Reason for Consult: SVT REFERRING PHYSICIAN Referring Physician: Negra SOURCE Source: Chart review, Patient HISTORY OF PRESENT ILLNESS HISTORY OF PRESENT ILLNESS This is a pleasant 69 yo male admitted for planned left knee injection and robotic assisted RTKA. In recovery he was noted with SVT and was given esmolol and has converted to SR but became hypotensive. He is now getting IVF. Aside from limited mobility due to severe Knee OA denies any chest pain , SOA. PAST MEDICAL HISTORY Past Medical History Cardiovascular: HTN, PSVT Pulmonary: No pertinent hx CENTRAL NERVOUS SYSTEM: Other (no pertinent hx) GI: No pertinent hx Heme/Onc: No pertinent hx Hepatobiliary: No pertinent hx Psych: No pertinent hx Musculoskeletal: Osteoarthritis Infectious disease: No pertinent hx ENT: No pertinent hx Renal/: No pertinent hx Endocrine: No pertinent hx Dermatology: No pertinent hx PAST SURGICAL HISTORY Past Surgical History Hernia Repair, Other (left ankle sx) FAMILY HISTORY Family History Coronary Artery Disease (mother and father ), Hypertension SOCIAL HISTORY Smoke: No ALCOHOL: none Drugs: None Lives: with Family CURRENT MEDICATIONS CURRENT MEDICATIONS Current Medications Medications (Trade) Dose Ordered Sig/Sonu Route PRN Reason Start Time Stop Time Status Last Admin Dose Admin Morphine Sulfate 5 mg/Ketorolac Tromethamine 30 mg/Ropivacaine 60 ml/Epinephrine HCl 0.5 mg/Sodium Chloride 100 ml @ 100 mls/hr 1X ONCE INT ART 02/22/20 06:00 02/22/20 06:59 DC 02/22/20 08:15 Meloxicam (Mobic) 15 mg 1X PREOP PRN PO PRIOR TO PROCEDURE 02/22/20 06:00 02/22/20 18:00 02/22/20 06:48 Acetaminophen (Tylenol) 1,000 mg 1X PREOP PRN PO PRIOR TO PROCEDURE 02/22/20 06:00 02/22/20 18:00 02/22/20 06:48 Clindamycin Phosphate 50 ml @ 100 mls/hr 1X PREOP PRN IV PRIOR TO PROCEDURE 02/22/20 06:00 02/22/20 18:00 02/22/20 07:24 Tranexamic Acid 1000 mg/Sodium Chloride 60 ml @ 60 mls/hr 1X PERIOP ONCE INJ 02/22/20 06:00 02/22/20 06:59 DC 02/22/20 07:39 Tranexamic Acid 1000 mg/Sodium Chloride 60 ml @ 60 mls/hr 1X PERIOP ONCE INJ 02/22/20 08:00 02/22/20 08:59 DC 02/22/20 09:14 Ringer's Solution 1,000 ml @ 100 mls/hr Q10H IV 02/22/20 06:30 02/23/20 06:29 02/22/20 06:47 Bupivacaine HCl (Sensorcaine Mpf 0.25%) 30 ml STK-MED ONCE .ROUTE 02/22/20 06:53 02/22/20 06:54 DC 02/22/20 07:57 Vancomycin HCl (Vancomycin) 1 gm STK-MED ONCE .ROUTE 02/22/20 06:54 02/22/20 06:54 DC 02/22/20 09:07 Tobramycin Sulfate (Tobramycin Powder) 1.2 gm STK-MED ONCE .ROUTE 02/22/20 06:54 02/22/20 06:54 DC 02/22/20 09:07 Methylprednisolone Acetate (DEPO-Medrol 80MG VIAL) 80 mg STK-MED ONCE .ROUTE 02/22/20 06:54 02/22/20 06:54 DC 02/22/20 07:57 Vancomycin HCl (Vancomycin) 1 gm STK-MED ONCE .ROUTE 02/22/20 07:02 02/22/20 07:02 DC 02/22/20 09:22 ALLERGIES ALLERGIES: Coded Allergies: Penicillins (Verified Allergy, Intermediate, 02/22/20) ROS Review of System 14 point ROS evaluated with pertinent positives noted per HPI PHYSICAL EXAM General: Alert, Oriented X3, Cooperative, No acute distress HEENT: Atraumatic, Mucous membr. moist/pink Lungs: Other (diminished bases) Heart: Regular rate (SR), Normal S1, Normal S2, No murmurs Abdomen: Soft, No tenderness Extremities: No cyanosis, No edema, Other (RLE wrapped dressing with hemovac dressing) Skin: No breakdown, No significant lesion Neuro: Normal speech, Sensation intact Psych/Mental Status: Mental status NL, Mood NL MUSCULOSKELETAL: Osteoarthritic changes both hands VITALS/I&O VITALS/I&O: Vital Signs Date Time Temp Pulse Resp B/P (MAP) Pulse Ox O2 Delivery O2 Flow Rate FiO2 02/22/20 10:35 100.4 108 16 115/73 94 Simple Mask 10 100.4 ECHOCARDIOGRAM ECHOCARDIOGRAM <Conclusion> The left ventricle is normal size. The left ventricular systolic function is normal and the ejection fraction is within normal range. The Ejection Fraction is 55-60%. There is no significant aortic valvular stenosis. Doppler and Color Flow revealed trace aortic regurgitation. Doppler and Color Flow revealed no mitral valve regurgitation noted. Doppler and Color Flow revealed trace tricuspid regurgitation. The PA pressure was estimated at 25 mmHg. DATE: 07/23/16 1612 ASSESSMENT/PLAN ASSESSMENT/PLAN 1. S/P RTKA with left knee injection 2. SVT: known hx converted to SR with esmolol occurred in PACU 3. Hypotension: due to esmolol 4. Hx of HTN Recommendations 1. IVF. Will hold off the rest of his BP meds for now to have room for metoprolol. Ultimately he will be on toprol 50 mg daily 2. Suspect this is cathecholaminergic response. IV hydration and monitor BP and Hgb 3. TTE and TSH 4. Supportive care 5. VTE prophylaxis per ortho LAVERNE CA MD 02/22/20 1706: CARDIAC CONSULT ASSESSMENT/PLAN ASSESSMENT/PLAN Patient seen and evaluated Status post Ortho procedure as above. Episode of SVT. Converted to sinus rhythm on esmolol. Continue monitoring and postop protocols. Oral beta-dianelys as tolerated. Mild hypotension. Tapering of esmolol. Will check labs and echocardiogram. Continue postop supportive care. Thank you for allowing us to participate in the care of your patient. JO ANN ALCARAZ APRN Feb 22, 2020 12:21 LAVERNE CA MD Feb 22, 2020 17:06
[2020-02-22] MEDS ORDERED: oxyCODONE/APAP 5/325 1 TAB TABLET PO PRN (12:30)
[2020-02-22] MEDS ORDERED: PHENYLEPHRINE in 0.9% NACL PF 1 MG/10 ML SYRINGE. IV PRN (12:45)
[2020-02-22] MEDS: IV NORMAL SALINE 1000ML BAG 1,000 ML IV SCH ×2 (13:43→18:07)
[2020-02-22] MEDS: oxyCODONE/APAP 5/325 1 TAB TABLET PO PRN (14:15)
[2020-02-22] MEDS ORDERED: METOPROLOL TARTRATE 5 MG/5 ML VIAL. IVP PRN (14:30)
[2020-02-22 14:37] LABS: CALCIUM 8.2 mg/dL (8.5-10.1); CREATININE 1.1 mg/dL (0.7-1.3); GFR 66.6; MAGNESIUM 1.8 mg/dL (1.8-2.4); POTASSIUM 4.1 mmol/L (3.5-5.1)
[2020-02-22] MEDS: KETOROLAC 30MG VIAL 30 MG, BUPIVACAINE MPF 0.25% 20 ML, EPINEPHrine 0.5 MG in TOTAL VOL... INT ART SCH (18:05)
[2020-02-22] MEDS: CLINDAMYCIN 900MG PREMIX 50 ML IV SCH ×2 (18:06→21:05)
[2020-02-22] MEDS ORDERED: LISINOPRIL 20 MG TABLET PO SCH (21:00)
[2020-02-22] MEDS: ASPIRIN ENTERIC COATED 325 MG TABLET.DR. PO SCH (21:04)
[2020-02-22] MEDS: amLODIPine BESYLATE 10 MG TABLET PO SCH (21:04)
[2020-02-22] MEDS: ATORVASTATIN CALCIUM 10 MG TABLET. PO SCH (21:04)
[2020-02-23] VITALS (7 sets, daily range): BP systolic 105–168; BP diastolic 55–104
[2020-02-23] MEDS: CLINDAMYCIN 900MG PREMIX 50 ML IV SCH (02:54)
[2020-02-23] MEDS: ONDANSETRON PF 4 MG/2 ML VIAL. IVP SCH ×2 (06:00)
[2020-02-23] MEDS ORDERED: MAGNESIUM HYDROXIDE 2,400 MG/30 ML ORAL.SUSP. PO PRN (06:00)
[2020-02-23] MEDS: ONDANSETRON ODT 4 MG TAB.RAPDIS. PO SCH ×2 (06:00)
[2020-02-23] MEDS: KETOROLAC 30MG VIAL 30 MG, BUPIVACAINE MPF 0.25% 20 ML, EPINEPHrine 0.5 MG in TOTAL VOL... INT ART SCH (06:11)
--- NOTE | 2020-02-23 08:07 | CARD ---
MR#: [id number] Date of Study: 02/22/2020 Ordering Physician: JO ANN ALCARAZ, Referring Physician: JO ANN ALCARAZ, Tech: Marilu Young APPROVED REPORT EXAM: Two-dimensional and M-mode echocardiogram with Doppler and color Doppler. Other Information Quality : AverageHR: 88bpm Technically limited study due to body habitus. INDICATION Superventricular Tachycardia RISK FACTORS Hypertension Hyperlipidemia 2D DIMENSIONS RVDd4.3 (2.9-3.5cm)Left Atrium(2D)4.3 (1.6-4.0cm) IVSd0.9 (0.7-1.1cm)Aortic Root(2D)3.6 (2.0-3.7cm) LVDd5.9 (3.9-5.9cm)LVOT Diameter2.2 (1.8-2.4cm) PWd1.0 (0.7-1.1cm)LVDs3.4 (2.5-4.0cm) FS (%) 41.4 %SV121.5 ml LVEF(%)71.5 (>50%) Aortic Valve AoV Peak Edenilson.147.0cm/sAoV VTI30.2cm AO Peak GR.8.6mmHgLVOT VTI 22.17cm AO Mean GR.5mmHg Mitral Valve MV E Dejcfzlp44.5cm/sMV E Peak Gr.4mmHg MV DECEL [id number] A Ygdkddba40.5cm/s MV E Mean Gr.2mmHgE/A Ratio1.0 TDI Lateral E' P. V7.72cm/sMedial E' P. V8.24cm/s E/Lateral E'7.6E/Medial E'7.1 Tricuspid Valve TR P. Qpkwddzo381ya/sRAP [id number] TR Peak Gr.84fwOuWUNR99enOp LEFT VENTRICLE The left ventricle is normal size. There is normal left ventricular wall thickness. The left ventricu lar systolic function is normal and the ejection fraction is within normal range. The Ejection Fracti on is 55-60%. There is normal LV segmental wall motion. Transmitral Doppler flow pattern is Grade II- pseudonormal filling dynamics. RIGHT VENTRICLE The right ventricle is normal size. There is normal right ventricular wall thickness. The right ventr icular systolic function is normal. ATRIA The left atrium is borderline dilated. The right atrium size is normal. The interatrial septum is int act with no evidence for an atrial septal defect or patent foramen ovale as noted on 2-D or Doppler i maging. AORTIC VALVE The aortic valve is thickened but opens well. Doppler and Color Flow revealed trace aortic regurgitat ion. There is no significant aortic valvular stenosis. Calculated aortic valve area is 2.83 cm2 with maximum pressure gradient of 9 mmHg and mean pressure gradient of 5 mmHg. MITRAL VALVE The mitral valve is normal in structure and function. There is no evidence of mitral valve prolapse. There is no mitral valve stenosis. Doppler and Color-flow revealed trace mitral regurgitation. TRICUSPID VALVE The tricuspid valve is normal in structure and function. Doppler and Color Flow revealed trace tricus pid regurgitation with an estimated PAP of 31 mmHg. There is no tricuspid valve stenosis. PULMONIC VALVE Doppler and Color Flow revealed no pulmonic valvular regurgitation. There is no pulmonic valvular nadeen nosis. GREAT VESSELS The aortic root is normal in size. The ascending aorta is moderately dilated at 4.6 cm on limited melissa ges, consider dedicated CT imaging The IVC is normal in size and collapses >50% with inspiration. PERICARDIAL EFFUSION There is no evidence of significant pericardial effusion. Critical Notification Critical Value: No <Conclusion> The left ventricular systolic function is normal and the ejection fraction is within normal range. Th e Ejection Fraction is 55-60%. There is normal LV segmental wall motion. The ascending aorta is moderately dilated at 4.6 cm on limited images, consider dedicated CT imaging Signed by : Gagandeep Correia, Electronically Approved : 02/23/2020 08:06:58
[2020-02-23] MEDS ORDERED: METOPROLOL SUCC 24HR ER 25 MG TAB.ER.24H. PO SCH (09:00)
[2020-02-23] MEDS ORDERED: NON FORMULARY ITEM (Lutein 40 MG) PO SCH (09:00)
[2020-02-23] MEDS: ASPIRIN ENTERIC COATED 325 MG TABLET.DR. PO SCH ×2 (09:31→20:54)
[2020-02-23] MEDS: CHOLECALCIFEROL (VITAMIN D3) 1,000 UNIT TABLET PO SCH (09:31)
[2020-02-23] MEDS: MULTIVITAMIN with MINERAL TABLET. PO SCH (09:31)
[2020-02-23] MEDS: SENNOSIDES/DOCUSATE 8.6/50MG TABLET. PO SCH (09:31)
[2020-02-23] MEDS: CELECOXIB 100 MG CAPSULE. PO SCH (09:31)
[2020-02-23] MEDS: METOPROLOL SUCC 24HR ER 50 MG TAB.ER.24H. PO SCH (09:32)
[2020-02-23] MEDS: oxyCODONE/APAP 5/325 1 TAB TABLET PO PRN ×3 (09:34→21:46)
--- NOTE | 2020-02-23 09:36 | PDOC ---
CARDIO Progress Notes Date and Time Date of Service 02/23/2020 Time of Evaluation 1040 Subjective Subjective: No Chest Pain, No shortness of breath, No Palpitations Vitals Vitals Vital Signs Date Time Temp Pulse Resp B/P (MAP) Pulse Ox O2 Delivery O2 Flow Rate FiO2 02/23/20 07:00 97.5 80 18 114/69 (84) 94 Room Air 97.5 02/22/20 16:36 2.0 Weight Weight [ ] Input and Output Intake and Output Intake and Output 02/23/20 07:00 Intake Total 2060 ml Output Total 1390 ml Balance 670 ml Intake Oral 1060 ml IV Total 1000 ml Output Urine Total 1000 ml Drainage Total 240 ml Estimated Blood Loss 150 ml Laboratory Labs Laboratory Tests Test 02/22/20 13:35 Sodium Level 144 mmol/L (136-145) Potassium Level 4.1 mmol/L (3.5-5.1) Chloride Level 109 mmol/L (98-107) Carbon Dioxide Level 25 mmol/L (21-32) Anion Gap 10 (6-14) Blood Urea Nitrogen 22 mg/dL (8-26) Creatinine 1.1 mg/dL (0.7-1.3) Estimated GFR (Cockcroft-Gault) 66.6 Glucose Level 129 mg/dL (70-99) Calcium Level 8.2 mg/dL (8.5-10.1) Magnesium Level 1.8 mg/dL (1.8-2.4) Thyroid Stimulating Hormone (TSH) 0.918 uIU/mL (0.358-3.74) Physical Exam HEENT: Neck Supple W Full Motion Chest: Symmetric LUNGS: Clear to Auscultation Heart: S1S2, RRR (SR) Abdomen: Soft N/T Extremities: No Calf Tenderness, Other (right knee wrapped dressing intact) Neurology: alert, oriented, follow commands Assessment Assessment 1. S/P RTKA with left knee injection 2. SVT: likely due to cathecholaminergic response. Maintaining SR. EF and WM nml 3. Hypotension: due to esmolol, BP controlled 4. Hx of HTN: controlled 5. Moderate Dilation of the ascending aorta: 4.6 cm Recommendations 1. Toprol XL 50 mg daily. Hold lisinopril today. 2. MCOT. follow up in office as scheduled 3. Aggressive IS 4. VTE prophylaxis per ortho 5. May transfer to [facility] this afternoon if no further SVTs with rehab initiation Justicifation of Admission Dx: Justifications for Admission: Justification of Admission Dx: Yes JO ANN ALCARAZ DISPLAY MAKER Feb 23, 2020 09:36
[2020-02-23 10:26] LABS: HEMATOCRIT 36.6 % (39.0-53.0); HEMOGLOBIN 12.3 g/dL (13.0-17.5); RED BLOOD COUNT 3.91 x10^6/uL (4.30-5.70); RED CELL DISTRIBUTION WIDTH 12.8 % (11.5-14.5); WHITE BLOOD COUNT 12.3 x10^3/uL (4.0-11.0)
[2020-02-23] MEDS ORDERED: ONDANSETRON ODT 4 MG TAB.RAPDIS. PO PRN (12:00)
[2020-02-23] MEDS ORDERED: ONDANSETRON PF 4 MG/2 ML VIAL. IVP PRN (12:00)
--- NOTE | 2020-02-23 12:15 | NUR ---
SS following for discharge planning. SS reviewed pt chart and discussed with pt RN. Pt is from home with spouse and is currently on room air. Pt had knee surgery on 02/22/2020. COVID19 negative on 02/17/2020. PT/OT recommended home with home healthcare. SS will continue to follow for discharge planning.
[2020-02-23] MEDS ORDERED: BISACODYL 10 MG SUPP.RECT. PR PRN (16:00)
[2020-02-23] MEDS ORDERED: POLYETHYLENE GLYCOL 3350 17 GM PACKET. PO PRN (16:00)
--- NOTE | 2020-02-23 17:31 | NUR ---
TRANSFERRED FROM [facility]; HE HAS GOOD PULSES MOTION AND SENSATION BILATERAL LOWER EXTREMITIES. ORIGINAL SURGICAL DRESSING REMOVED; IAC(BLUE TIP INTACT) AND HEMOVAC REMOVED TOLERATED WELL. AT BEDSIDE.
[2020-02-23] MEDS: ATORVASTATIN CALCIUM 10 MG TABLET. PO SCH (20:54)
[2020-02-23] MEDS: amLODIPine BESYLATE 10 MG TABLET PO SCH (20:58)
[2020-02-24 03:15] VITALS: BP 136/74
[2020-02-24 07:00] VITALS: BP 102/54
[2020-02-24 07:06] LABS: HEMATOCRIT 36.2 % (39.0-53.0); HEMOGLOBIN 12.5 g/dL (13.0-17.5)
[2020-02-24] MEDS: CELECOXIB 100 MG CAPSULE. PO SCH (08:46)
[2020-02-24] MEDS: CHOLECALCIFEROL (VITAMIN D3) 1,000 UNIT TABLET PO SCH (08:47)
[2020-02-24] MEDS: oxyCODONE/APAP 5/325 1 TAB TABLET PO PRN ×2 (08:47→12:37)
[2020-02-24] MEDS: MULTIVITAMIN with MINERAL TABLET. PO SCH (08:47)
[2020-02-24] MEDS: SENNOSIDES/DOCUSATE 8.6/50MG TABLET. PO SCH (08:47)
[2020-02-24] MEDS: ASPIRIN ENTERIC COATED 325 MG TABLET.DR. PO SCH ×2 (08:54→20:41)
[2020-02-24] MEDS: METOPROLOL SUCC 24HR ER 50 MG TAB.ER.24H. PO SCH (09:00)
[2020-02-24] MEDS ORDERED: LISINOPRIL 20 MG TABLET PO SCH (09:00)
--- NOTE | 2020-02-24 09:20 | PDOC ---
CARDIO Progress Notes Date and Time Date of Service 02/24/2020 Time of Evaluation 1000 Subjective Subjective: No Chest Pain, No shortness of breath, No Palpitations Vitals Vitals Vital Signs Date Time Temp Pulse Resp B/P (MAP) Pulse Ox O2 Delivery O2 Flow Rate FiO2 02/24/20 08:47 Room Air 02/24/20 07:00 98.4 52 18 102/54 (70) 96 98.4 02/23/20 21:46 2.0 Weight Weight [ ] Input and Output Intake and Output Intake and Output 02/24/20 07:00 Intake Total 960 ml Output Total 180 ml Balance 780 ml Intake Oral 960 ml Drainage Total 180 ml # Voids 3 # Bowel Movements 1 Laboratory Labs Laboratory Tests Test 02/23/20 10:10 02/24/20 06:52 White Blood Count 12.3 x10^3/uL (4.0-11.0) Red Blood Count 3.91 x10^6/uL (4.30-5.70) Hemoglobin 12.3 g/dL (13.0-17.5) 12.5 g/dL (13.0-17.5) Hematocrit 36.6 % (39.0-53.0) 36.2 % (39.0-53.0) Mean Corpuscular Volume 94 fL (79-100) Mean Corpuscular Hemoglobin 31 pg (25-35) Mean Corpuscular Hemoglobin Concent 34 g/dL (31-37) 35 g/dL (31-37) Red Cell Distribution Width 12.8 % (11.5-14.5) Platelet Count 149 x10^3/uL (140-400) Physical Exam HEENT: Neck Supple W Full Motion Chest: Symmetric LUNGS: Clear to Auscultation Heart: S1S2, RRR Abdomen: Soft N/T Extremities: No Calf Tenderness, Other (right knee wrapped dressing intact) Neurology: alert, oriented, follow commands Assessment Assessment 1. S/P RTKA with left knee injection 2. SVT: likely due to cathecholaminergic response. Maintaining SR, no further episodes. EF and WM nml 3. Hypotension: due to esmolol, BP controlled 4. Hx of HTN: controlled 5. Moderate Dilation of the ascending aorta: 4.6 cm Recommendations 1. Toprol XL 50 mg daily. No further lisinopril for now. Continue nightly norvasc. Discussed HBMP bid in the next week and will restart home lisinopril pending his BP trend as an outpt. 2. MCOT. follow up in office as scheduled 3. Aggressive IS 4. Tolerating rehab VTE prophylaxis per ortho Justicifation of Admission Dx: Justifications for Admission: Justification of Admission Dx: Yes JO ANN ALCARAZ APRN Feb 24, 2020 09:20
[2020-02-24 15:00] VITALS: BP 109/66
--- NOTE | 2020-02-24 18:06 | PATHOLOGY ---
[facility] Accession Number: [id number] . 01 Material submitted: . knee - RIGHT KNEE BONE AND TISSUE. Modifiers: right . 01 Clinical history: . RIGHT KNEE OSTEOARTHRITIS . 02 Diagnosis: Segments of bone and soft tissue, robotic assisted right total knee arthroplasty: - Advanced degenerative arthritis. (JPM:michael; 02/24/2020) MBR 02/24/2020 1615 Local . 02 Electronically signed: . Preet Peña MD, Pathologist NPI- [id number] . 01 Gross description: . The specimen is received in formalin, labeled "Devan Acevedo, right knee bone and tissue" and consists of multiple segments of bone including the tibial plateau with attached yellow lobulated tissue measuring 13.8 x 11.0 x 2.6 cm. The meniscus is present. Peripheral osteophytes are present. The articular surfaces display extensive eburnation. Fire Safety Inspector sections are submitted in A1-A2 with A2 following decalcification. (SDY; 02/23/2020) SYU/SYU 02/23/2020 1108 Local . 02 Pathologist provided ICD-10: M17.11 . 02 CPT . 600950, [id number] Specimen Comment: A courtesy copy of this report has been sent to [phone], [phone] Specimen Comment: [id number] Specimen Comment: Report sent to / DR ROCK Performed at: 01 [facility] [address], [place] [id number] MD Av Jamil MD Phone: [phone] Performed at: 02 [facility] [address] [place], [place] [id number] MD Preet Peña MD Phone: [phone]
--- NOTE | 2020-02-24 18:23 | PDOC ---
PROGRESS NOTES Date of Service DATE: 02/24/20 TIME: 18:17 Subjective Subjective In the PACU postop he had SVT and hypotension and ultimately was transferred to monitored bed with cardiology consult. He had an ECHO. Better today and transferred to , doing better but BP meds adjusted this morning. Objective Vital Signs Vital Signs Date Time Temp Pulse Resp B/P (MAP) Pulse Ox O2 Delivery O2 Flow Rate FiO2 02/24/20 15:00 97.8 84 19 109/66 (80) 94 Room Air 97.8 02/23/20 21:46 2.0 Physical Exam MERARI intact with some bloody spots. Good AROM foot, no calf pain. Labs Laboratory Tests Test 02/23/20 10:10 02/24/20 06:52 White Blood Count 12.3 x10^3/uL (4.0-11.0) Red Blood Count 3.91 x10^6/uL (4.30-5.70) Hemoglobin 12.3 g/dL (13.0-17.5) 12.5 g/dL (13.0-17.5) Hematocrit 36.6 % (39.0-53.0) 36.2 % (39.0-53.0) Mean Corpuscular Volume 94 fL (79-100) Mean Corpuscular Hemoglobin 31 pg (25-35) Mean Corpuscular Hemoglobin Concent 34 g/dL (31-37) 35 g/dL (31-37) Red Cell Distribution Width 12.8 % (11.5-14.5) Platelet Count 149 x10^3/uL (140-400) Laboratory Tests Test 02/24/20 06:52 Hemoglobin 12.5 g/dL (13.0-17.5) Hematocrit 36.2 % (39.0-53.0) Mean Corpuscular Hemoglobin Concent 35 g/dL (31-37) Imaging Report reviewed, images independently reviewed of knee showing satisfactory TKA without apparent complications. The ECHO report was reviewed. Aortic dilatation, otherwise looks pretty good to me. [facility] [address] [place] [address] IMAGING REPORT Signed PATIENT: LAURA NEVILLE ACCOUNT: [id number] : 1950 LOCATION: SOUTH AGE: 69 SEX: M EXAM STATUS: ADM IN ORD. PHYSICIAN: DAYDAY DUNCAN MD REASON: POST OP PROCEDURE: KNEE RIGHT 2V Examination: KNEE RIGHT 2V History: POST OP / Comparison/Correlation: 01/17/2020 preoperative x-ray exam Findings: Frontal and lateral postoperative views of the right knee were obtained. Total right knee joint arthroplasty is present. Drainage catheter tubing is present. Soft tissue gas is present. No fracture or bone destruction. Vascular calcifications noted. Impression: Total right knee arthroplasty is intact. Postoperative findings. Electronically signed by: Mauro Quinn MD (02/22/2020 11:57 AM) [id number] DICTATED and SIGNED BY: MAURO QUINN MD DATE: 02/22/20 1157 Accession No. : [id number] Patient Name / ID : KELIN Espinoza / [id number] Exam Date : 02/22/2020 14:25:40 ( Approved ) Study Comment : Sex / Age : M / 69Y Creator : Marilu Young Dictator : Associate Professor Of Education : Yard Loader Operator : Gagandeep Correia Approver2 : Report Date : 02/22/2020 16:38:11 My Comment : MR#: [id number] Date of Study: 02/22/2020 Ordering Physician: JO ANN ALCARAZ, Referring Physician: JO ANN ALCARAZ, Tech: Marilu Young APPROVED REPORT EXAM: Two-dimensional and M-mode echocardiogram with Doppler and color Doppler. Other Information Quality : Average HR: 88bpm Technically limited study due to body habitus. INDICATION Superventricular Tachycardia RISK FACTORS Hypertension Hyperlipidemia 2D DIMENSIONS RVDd 4.3 (2.9-3.5cm) Left Atrium(2D) 4.3 (1.6-4.0cm) IVSd 0.9 (0.7-1.1cm) Aortic Root(2D) 3.6 (2.0-3.7cm) LVDd 5.9 (3.9-5.9cm) LVOT Diameter 2.2 (1.8-2.4cm) PWd 1.0 (0.7-1.1cm) LVDs 3.4 (2.5-4.0cm) FS (%) 41.4 % SV 121.5 ml LVEF(%) 71.5 (>50%) Aortic Valve AoV Peak Edenilson. 147.0cm/s AoV VTI 30.2cm AO Peak GR. 8.6mmHg LVOT VTI 22.17cm AO Mean GR. 5mmHg Mitral Valve MV E Velocity 58.5cm/s MV E Peak Gr. 4mmHg MV DECEL TIME 236ms MV A Velocity 60.5cm/s MV E Mean Gr. 2mmHg E/A Ratio 1.0 TDI Lateral E' P. V 7.72cm/s Medial E' P. V 8.24cm/s E/Lateral E' 7.6 E/Medial E' 7.1 Tricuspid Valve TR P. Velocity 211cm/s RAP ESTIMATE 3mmHg TR Peak Gr. 28mmHg RVSP 31mmHg LEFT VENTRICLE The left ventricle is normal size. There is normal left ventricular wall thickness. The left ventricular systolic function is normal and the ejection fraction is within normal range. The Ejection Fraction is 55-60%. There is normal LV segmental wall motion. Transmitral Doppler flow pattern is Grade II- pseudonormal filling dynamics. RIGHT VENTRICLE The right ventricle is normal size. There is normal right ventricular wall thickness. The right ventricular systolic function is normal. ATRIA The left atrium is borderline dilated. The right atrium size is normal. The interatrial septum is intact with no evidence for an atrial septal defect or patent foramen ovale as noted on 2-D or Doppler imaging. AORTIC VALVE The aortic valve is thickened but opens well. Doppler and Color Flow revealed trace aortic regurgitation. There is no significant aortic valvular stenosis. Calculated aortic valve area is 2.83 cm2 with maximum pressure gradient of 9 mmHg and mean pressure gradient of 5 mmHg. MITRAL VALVE The mitral valve is normal in structure and function. There is no evidence of mitral valve prolapse. There is no mitral valve stenosis. Doppler and Color-flow revealed trace mitral regurgitation. TRICUSPID VALVE The tricuspid valve is normal in structure and function. Doppler and Color Flow revealed trace tricuspid regurgitation with an estimated PAP of 31 mmHg. There is no tricuspid valve stenosis. PULMONIC VALVE Doppler and Color Flow revealed no pulmonic valvular regurgitation. There is no pulmonic valvular stenosis. GREAT VESSELS The aortic root is normal in size. The ascending aorta is moderately dilated at 4.6 cm on limited images, consider dedicated CT imaging The IVC is normal in size and collapses >50% with inspiration. PERICARDIAL EFFUSION There is no evidence of significant pericardial effusion. Critical Notification Critical Value: No <Conclusion> The left ventricular systolic function is normal and the ejection fraction is within normal range. The Ejection Fraction is 55-60%. There is normal LV segmental wall motion. The ascending aorta is moderately dilated at 4.6 cm on limited images, consider dedicated CT imaging Signed by : Gagandeep Correia, Electronically Approved : 02/23/2020 08:06:58 Assessment Assessment POD#2 after TKA. Had SVT and BP issues and is still having BP meds adjusted. Plan Plan of Care Will probably be safe to discharge home tomorrow--want to watch the result overnight of the BP meds adjustment from earlier today. Plan would be home with home health on Friday if BP stable and cardiology agrees. Justicifation of Admission Dx: Justifications for Admission: Justification of Admission Dx: Yes DAYDAY DUNCAN MD Feb 24, 2020 18:23
[2020-02-24 19:00] VITALS: BP 125/66
[2020-02-24] MEDS: ATORVASTATIN CALCIUM 10 MG TABLET. PO SCH (20:41)
[2020-02-24] MEDS: amLODIPine BESYLATE 10 MG TABLET PO SCH (20:42)
[2020-02-24 23:00] VITALS: BP 114/77
[2020-02-25 02:47] VITALS: BP 123/77
[2020-02-25 07:00] VITALS: BP 138/86
[2020-02-25 08:59] LABS: HEMOGLOBIN 13.2 g/dL (13.0-17.5)
[2020-02-25] MEDS ORDERED: LISINOPRIL 20 MG TABLET PO SCH (09:00)
[2020-02-25] MEDS: ASPIRIN ENTERIC COATED 325 MG TABLET.DR. PO SCH (10:29)
[2020-02-25] MEDS: MULTIVITAMIN with MINERAL TABLET. PO SCH (10:29)
[2020-02-25] MEDS: CHOLECALCIFEROL (VITAMIN D3) 1,000 UNIT TABLET PO SCH (10:30)
[2020-02-25] MEDS: METOPROLOL SUCC 24HR ER 50 MG TAB.ER.24H. PO SCH (10:30)
[2020-02-25] MEDS: CELECOXIB 100 MG CAPSULE. PO SCH (10:30)
[2020-02-25] MEDS: SENNOSIDES/DOCUSATE 8.6/50MG TABLET. PO SCH (10:30)
--- NOTE | 2020-02-25 10:30 | NUR ---
Episode with therapy this am. Pt stated feeling tired and OT checked 83/61. Placed in recliner with feet up. BP rechecked 86/65 there after 100/65. Will continue to monitor.
[2020-02-25] MEDS: oxyCODONE/APAP 5/325 1 TAB TABLET PO PRN ×2 (10:32→17:24)
[2020-02-25 10:49] VITALS: BP 129/81
[2020-02-25 15:00] VITALS: BP 127/72
--- NOTE | 2020-02-25 15:51 | PDOC ---
PROGRESS NOTES Date of Service DATE: 02/25/20 TIME: 15:49 Subjective Subjective The patient had 1 more episode of hypotension today. This was treated with Trendelenburg positioning and holding blood pressure medicines. He is feeling better now. Cardiology is to be notified. Objective Vital Signs Vital Signs Date Time Temp Pulse Resp B/P (MAP) Pulse Ox O2 Delivery O2 Flow Rate FiO2 02/25/20 15:00 98.6 93 19 127/72 (90) 93 Room Air 98.6 02/23/20 21:46 2.0 Physical Exam Sara dressing dry with a few spotty blood spots. Calf soft and nontender. Still some swelling at the knee, but no severe effusion. Homans sign is negative. Labs Laboratory Tests Test 02/24/20 06:52 02/25/20 08:20 Hemoglobin 12.5 g/dL (13.0-17.5) 13.2 g/dL (13.0-17.5) Hematocrit 36.2 % (39.0-53.0) 39.0 % (39.0-53.0) Mean Corpuscular Hemoglobin Concent 35 g/dL (31-37) 34 g/dL (31-37) Laboratory Tests Test 02/25/20 08:20 Hemoglobin 13.2 g/dL (13.0-17.5) Hematocrit 39.0 % (39.0-53.0) Mean Corpuscular Hemoglobin Concent 34 g/dL (31-37) Assessment Assessment POD# 3 after total knee arthroplasty. Had supraventricular tachycardia Plan Plan of Care Probably can be discharged home today. We will double check with cardiology. Home health. Justicifation of Admission Dx: Justifications for Admission: Justification of Admission Dx: N/A DAYDAY DUNCAN MD Feb 25, 2020 15:51
--- NOTE | 2020-02-25 15:58 | PDOC3 ---
Discharge Summary Visit Information Date of Admission: Feb 22, 2020 Date of Discharge: Feb 25, 2020 Final Diagnosis Osteoarthritis of the right knee. Aftercare after right total knee arthroplasty Supraventricular tachycardia Hypotension Brief Hospital Course Allergies Allergies Coded Allergies Type Severity Reaction Last Updated Verified Penicillins Allergy Intermediate 02/22/20 Yes Vital Signs Vital Signs Date Time Temp Pulse Resp B/P (MAP) Pulse Ox O2 Delivery O2 Flow Rate FiO2 02/25/20 15:00 98.6 93 19 127/72 (90) 93 Room Air 98.6 02/23/20 21:46 2.0 Lab Results Laboratory Tests Test 02/24/20 06:52 02/25/20 08:20 Hemoglobin 12.5 g/dL (13.0-17.5) 13.2 g/dL (13.0-17.5) Hematocrit 36.2 % (39.0-53.0) 39.0 % (39.0-53.0) Mean Corpuscular Hemoglobin Concent 35 g/dL (31-37) 34 g/dL (31-37) Laboratory Tests Test 02/25/20 08:20 Hemoglobin 13.2 g/dL (13.0-17.5) Hematocrit 39.0 % (39.0-53.0) Mean Corpuscular Hemoglobin Concent 34 g/dL (31-37) Brief Hospital Course 69 year old who presented with knee osteoarthritis, for elective total knee arthroplasty. The patient underwent total knee arthroplasty under general a nesthesia the day of admission. Perioperative antibiotics and DVT prophylaxis were used. After about 1 hour in the recovery room he developed a significant episode of supraventricular tachycardia. He had some blood pressure issues. He was sent to monitored bed initially. Cardiology was consulted. Echocardiogram was performed during this admission which showed aortic dilatation but what seems to be normal ejection fraction and no significant issues to my review. Please see cardiology notes if needed. Adjustments were made to his blood pressure medications. He did have an episode of hypotension on postoperative day 3. Adjustments have been made to his medications. He seems to be doing well now, stable blood pressure, feeling well. He knows to stay hydrated and check blood pressure if feeling symptoms. Postoperatively physical therapy and case management were consulted. The patient progressed and is stable for discharge with home health. Discharge Information Condition at Discharge: Stable Disposition/Orders: D/C to Home w/ HH Scheduled Amlodipine Besylate (Amlodipine Besylate), 10 MG PO HS, (Reported) Arginine Hcl (L-Arginine), 500 MG PO DAILY, (Reported) Ascorbic Acid (Vitamin C), 1,000 MG PO DAILY, (Reported) Aspirin (Aspirin), 81 MG PO DAILY, (Reported) Atorvastatin Calcium (Atorvastatin Calcium), 10 MG PO HS, (Reported) Benazepril Hcl (Benazepril Hcl), 1 TAB PO BID, (Reported) Cholecalciferol (Vitamin D3) (Vitamin D3), 2,000 UNITS PO DAILY, (Reported) Lutein (Lutein), 40 MG PO DAILY, (Reported) Metoprolol Succinate (Metoprolol Succinate ( Xl )), 0.5 PO DAILY, (Reported) Multivitamin (Multiple Vitamins), 1 EACH PO DAILY, (Reported) [place]-3 Fatty Acids/Fish Oil ([place] 3 Fish Oil Softgel), 1 EACH PO HS, (Reported ) Resveratrol (Resveratrol), 50 MG PO DAILY, (Reported) [white willow bark], 400 MG PO BID, (Reported) Scheduled PRN Meloxicam (Meloxicam), 1 TAB PO BID PRN for PAIN, (Reported) Patient Instructions Patient Instructions Continue to weight bearing as tolerated with walker. Keep MERARI dressing intact and dry. Follow up with Dr. Omer's office on Friday. Call for appointment unless already scheduled. Continue enteric coated aspirin 325 mg by mouth twice a day for 30 days to prevent blood clots. Check your blood pressure daily and report to your processing clerk if abnormal. Check blood pressure as needed for lightheadedness or other symptoms. Justicifation of Admission Dx: Justifications for Admission: Justification of Admission Dx: N/A DAYDAY OMER MD Feb 25, 2020 15:58
--- NOTE | 2020-02-25 16:00 | SNU/HH DC ---
DISCHARGE WITH HOME HEALTH DISCHARGE INFORMATION: Discharge Date: Feb 25, 2020 Final Diagnosis: Osteoarthritis right knee Aftercare after right total knee arthroplasty Supraventricular tachycardia Episodic hypotension Condition on Discharge: Stable HOME HEALTH: Face to Face: I certify this patient is under my care and that I, or a nurse practitioner or physician's surgical physician assistant working with me, had a face to face encounter that meets the physician face to face encounter requirements with this patient on 02/25/2020. Medical Complications: DJD, S/P Joint Replacement RN For Eval/Treatment: No Physical Therapy For: Evalulation/Treatment Occupational Therapy For: Evaluation/Treatment Pt Meets Homebound Status: Unsteady balance w/ amb,, Limited distance walking POST DISCHARGE ORDERS: Activity Instructions for Disc: Activity as tolerated Weight Bearing Status after Di: Full weight bearing Bathing Instructions: Shower-keep dressing dry DIET AFTER DISCHARGE: Cardiac Wound/Incision Care: Ice to area for comfort, Keep wound/cast CDI, Keep wound elevated, Do not change dressing CHECKS AFTER DISCHARGE: Checks after discharge: Check blood press - daily FOLLOW-UP: Additional Instructions: Continue to weight bearing as tolerated with walker. Keep MERARI dressing intact and dry. Follow up with Dr. Omer's office on Friday. Call for appointment unless already scheduled. Continue enteric coated aspirin 325 mg by mouth twice a day for 30 days to prevent blood clots. Check your blood pressure daily and report to your incinerator plant general supervisor if abnormal. Check blood pressure as needed for lightheadedness or other symptoms. TREATMENT/EQUIPMENT ORDERS: Adaptive Equipment Issued: Front wheeled walker CERTIFICATION STATEMENT: Certification Statement: Certification Statement: Based on the above finding, I certify that this patient is confined to the home and needs intermittent custodial care, physical therapy and/or speech therapy, or continues to need occupational therapy.~ This patient is under my care, and I have initiated the establishment of the plan of care.~ This patient will be followed by myself or a community physician who will periodically review the plan of care. Home Meds Reported Medications Cholecalciferol (Vitamin D3) (Vitamin D3) 1,250 Mcg Capsule, 2000 UNITS PO DAILY for TREAT LOW VIT D LEVEL, CAP 02/16/20 [white willow bark] No Conflict Check, 400 MG PO BID 02/09/20 Resveratrol (RESVERATROL) 50 Mg Capsule, 50 MG PO DAILY for supplement, CAP 02/09/20 Lutein (LUTEIN) 40 Mg Capsule, 40 MG PO DAILY for supplement, CAP 02/09/20 Arginine Hcl (L-ARGININE) 1,000 Mg Tablet, 500 MG PO DAILY for amino acid supplement, TAB 02/09/20 Ascorbic Acid (VITAMIN C) 500 Mg Capsule.er, 1000 MG PO DAILY for supplement, CAP.SR 02/09/20 Multivitamin (MULTIPLE VITAMINS) 1 Each Tablet, 1 EACH PO DAILY for supplement, TAB 02/09/20 Atorvastatin Calcium (ATORVASTATIN CALCIUM) 10 Mg Tablet, 10 MG PO HS for FOR CHOLESTEROL, #30 TAB 0 Refills 02/09/20 Amlodipine Besylate (AMLODIPINE BESYLATE) 10 Mg Tablet, 10 MG PO HS for blood pressure control, TAB 02/09/20 Aspirin (ASPIRIN) 81 Mg Tab.chew, 81 MG PO DAILY for blood thinner, TAB.CHEW 02/09/20 [place]-3 Fatty Acids/Fish Oil ([place] 3 FISH OIL SOFTGEL) 1 Each Capsule.dr, 1 EACH PO HS for supplement, CAP 02/09/20 Metoprolol Succinate (METOPROLOL SUCCINATE ( XL )) 25 Mg Tab.er.24h, 0.5 PO DAILY, #30 TAB 5 Refills 07/24/16 Meloxicam (MELOXICAM) 7.5 Mg Tablet, 1 TAB PO BID PRN for PAIN, #30 TAB 2 Refills 07/23/16 Benazepril Hcl (BENAZEPRIL HCL) 20 Mg Tablet, 1 TAB PO BID for blood pressure control, #30 TAB 5 Refills 07/23/16 DAYDAY OMER MD Feb 25, 2020 16:00
--- NOTE | 2020-02-25 16:15 | NUR ---
Spoke with Ezekiel from Cardiology about episode. BP at this time 133/76 with heart rate 94. Gave orders to hold metoprolol for today and to increase po fluids. Okay to dc home. Ezekiel spoke with family.
--- NOTE | 2020-02-25 16:30 | PDOC ---
CARDIO Progress Notes Date and Time Date of Service 02/25/2020 Time of Evaluation 1610 Subjective Subjective: No Chest Pain, No shortness of breath, No Palpitations Vitals Vitals Vital Signs Date Time Temp Pulse Resp B/P (MAP) Pulse Ox O2 Delivery O2 Flow Rate FiO2 02/25/20 15:00 98.6 93 19 127/72 (90) 93 Room Air 98.6 Weight Weight [ ] Input and Output Intake and Output Intake and Output 02/25/20 07:00 Intake Total 460 ml Balance 460 ml Intake Oral 460 ml # Voids 3 Laboratory Labs Laboratory Tests Test 02/25/20 08:20 Hemoglobin 13.2 g/dL (13.0-17.5) Hematocrit 39.0 % (39.0-53.0) Mean Corpuscular Hemoglobin Concent 34 g/dL (31-37) Physical Exam HEENT: Neck Supple W Full Motion Chest: Symmetric LUNGS: Clear to Auscultation Heart: S1S2, RRR Abdomen: Soft N/T Extremities: No Calf Tenderness, Other (right knee wrapped dressing intact) Neurology: alert, oriented, follow commands Assessment Assessment 1. S/P RTKA with left knee injection 2. SVT: likely due to cathecholaminergic response. Maintaining SR, no further episodes. EF and WM nml 3. Orthostasis: due to volume depletion 4. Hx of HTN: controlled 5. Moderate Dilation of the ascending aorta: 4.6 cm Recommendations 1. Hydrated significantly via PO as SL is off. BP has been consistently normotensive. Will resume toprol XL 50 mg daily 2. Hold home norvasc for now. HBPM bid for 1 week and will eventually resume if BP trend is starting to go up. Discussed significnatly with and pt with specific instructions 3. Hold off lisinopril until further notice and will reeval as an outpt 4. MCOT 5. Continue rehab outpt per ortho Justicifation of Admission Dx: Justifications for Admission: Justification of Admission Dx: N/A JO ANN ALCARAZ APRN Feb 25, 2020 16:30
[2020-02-25] MEDS ORDERED: METO-239 PO (16:31)
--- NOTE | 2020-02-25 17:40 | NUR ---
Discharge instructions given. Answered questions and concerns. Both pt and spouse verbalized understanding. VALERIE's applied and extra sent with ice pack. Escorted out by w/c.
== END 2020-02-25 17:40 | disposition home health service (06) | DRG 470 ==
LOC: SURG 06:05 → EDSTATUS 07:10 → 2 SOUTH 11:53 → 4 NORTH 02-23 15:42
PROVIDERS: ADMIT Orthopaedic Surgery; ATTEND Orthopaedic Surgery
PROC: 8E0Y4CZ Robotic Assisted Procedure of Lower Extremity, Percutaneous Endoscopic Approach (ICD-10-PCS; 2020-02-22)
PROC: 0SRC0J9 Replacement of Right Knee Joint with Synthetic Substitute, Cemented, Open Approach (ICD-10-PCS; principal; 2020-02-22 07:10)
DX: M17.11 Unilateral primary osteoarthritis, right knee (principal); I47.1 Supraventricular tachycardia; E78.00 Pure hypercholesterolemia, unspecified; I77.810 Thoracic aortic ectasia; M17.0 Bilateral primary osteoarthritis of knee; M21.169 Varus deformity, not elsewhere classified, unspecified knee; Z82.49 Family history of ischemic heart disease and other diseases of the circulatory system; Z87.891 Personal history of nicotine dependence; Z88.0 Allergy status to penicillin; I10 Essential (primary) hypertension; I95.9 Hypotension, unspecified
CPT/HCPCS: 36415; 73560; 80048; 83735; 84443; 85014; 85018; 85027; 86850; 86900; 86901; 88304; 88311; 93005; 93306; A7015; C1713; J0171; J1040; J1100; J1885; J2270; J2370; J2405; J2704; J2795; J3010; J3260; J3370; J3490; J7030; J7120; P9045; 97110-GP; 97116-GP; 97530-GO; 97530-GP; 97535-GO; A4461; C1769; G0378

== ENCOUNTER → 2020-03-20 | Outpatient (CLI) | payer BC, MEDICARE ==
[2020-02-25 10:49] VITALS: BP 129/81
[~2020-03-20] MED LIST changes: -ACETAMINOPHEN 500 MG TABLET PO PRN; +AMLO-187 PO; -AMLO10TA8 PO; +CALC500T30 PO; +LISI-338 PO; -MELOXICAM 7.5 MG TABLET PO PRN; -MORPHINE SULFATE 5 MG, KETOROLAC 30MG VIAL 30 MG, ROPIVacaine 0.5% PF 60 ML, EPINEPHrin... INT ART ONE; -TRANEXAMIC ACID 1,000 MG in IV NS 50ML -- 1ST BAG INJ ONE
== END ==
LOC: LAB 15:03
PROVIDERS: ATTEND Surgery
DX: Z01.812 Encounter for preprocedural laboratory examination (principal); Z20.828 Contact with and (suspected) exposure to other viral communicable diseases
CPT/HCPCS: U0003

== ENCOUNTER → 2020-03-24 | Day surgery (SDC) | payer BC, MEDICARE ==
[2020-02-25 10:49] VITALS: BP 129/81
[~2020-03-24] MED LIST changes: +LIDOCAINE 1%/EPI 1:100,000 20 ML VIAL. INJ ONE
--- NOTE | 2020-03-24 11:18 | DISCH ---
DISCHARGE INSTRUCTIONS Condition on Discharge Condition on Discharge: Stable Activity After Discharge Activity Instructions for Disc: Activity as tolerated Diet after Discharge Diet after Discharge: Cardiac Contacting the DRStephane after DC Call your doctor for: If your condition worsens Follow-Up Follow up with: Dr. Flores in 1 week TAD FLORES MD Mar 24, 2020 11:18
--- NOTE | 2020-03-24 11:20 | PDOC4 ---
Operative Note Operative Note Date: 1029 at 1119 Preoperative diagnosis: Scalp lesion 3 cm diameter Postoperative diagnosis: Same Procedure: Excision of scalp lesion Surgeon: Prashanth Specimen: Scalp lesion Dictation: Patient is a 69-year-old male has had an enlarging scalp lesion on his right scalp concerning for a basal cell carcinoma. Procedure of excision was explained to the patient detail was benefits were also discussed including bleeding infection alternatives to this procedure also discussed with the patient who seemed to understand and gave a verbal and written consent to have the procedure performed. Patient was taken to the minors room placed in the supine position the area of the scalp mass was prepped and draped in usual sterile fashion using ChloraPrep the area around the mass was injected with 1% lidocaine with epinephrine once this was anesthetized an elliptical incision was made with a 15 blade scalpel encompassing the scalp lesion this was excised and sent for pathology. Letter cautery was used to provide hemostasis and the wound was closed in a single layer of 2-0 Vicryl single interrupted sutures. 4 x 4 and Medipore tape were applied as a dressing. Patient tolerated procedure well was discharged home in stable condition all sponge instrument needle counts listed as correct estimated blood loss 10 mL TAD FLORES MD Mar 24, 2020 11:20
--- NOTE | 2020-03-28 09:07 | PATHOLOGY ---
[facility] Accession Number: [id number] . 01 Material submitted: . scalp - SCALP LESION RIGHT SIDE. Modifiers: right . 01 Clinical history: . SCALP LESION . 02 Diagnosis: Skin "right scalp lesion", excision: - INVASIVE SQUAMOUS CELL CARCINOMA, WELL-DIFFERENTIATED WITH MARKED ACUTE AND CHRONIC INFLAMMATION AND AREAS OF GRANULOMATOUS INFLAMMATION. - Completely excised. (MLK/db; 03/27/2020) LBQ 03/28/2020 0815 Local . 02 Electronically signed: . Marilou Kan MD, Pathologist NPI- [id number] . 01 Gross description: . Received in formalin labeled "Devan Acevedo, scalp lesion right side" is an unoriented ellipse of skin measuring 3.2 x 1.8 x 0.5 cm. The skin surface displays a raised rosario-brown roughened lesion measuring 1.6 x 1.6 x 0.8 cm. The margin is inked and the specimen is sectioned into 10 pieces. The specimen is submitted entirely in A1-A3, with the tips in the last cassette. ([facility] [place]; 03/25/2020) SY/[facility] 03/25/2020 1239 Local . 02 Pathologist provided ICD-10: C44.42 . 02 CPT . 528350 Specimen Comment: A courtesy copy of this report has been sent to [phone] Specimen Comment: Report sent to DR ROCK Performed at: 01 [facility] [address] [id number] MD Marcelo Rodríguez MD Phone: [phone] Performed at: 02 [facility] [address] [id number] MD Octavio Bernstein MD Phone: [phone]
== END | disposition home or self-care (01) ==
LOC: SURG 09:09
PROVIDERS: ATTEND Surgery
DX: C44.42 Squamous cell carcinoma of skin of scalp and neck (principal); I10 Essential (primary) hypertension; I48.91 Unspecified atrial fibrillation; E78.00 Pure hypercholesterolemia, unspecified; M19.90 Unspecified osteoarthritis, unspecified site; Z79.899 Other long term (current) drug therapy; Z98.890 Other specified postprocedural states; Z87.891 Personal history of nicotine dependence; Z88.0 Allergy status to penicillin; Z82.49 Family history of ischemic heart disease and other diseases of the circulatory system
CPT/HCPCS: 11624; 88305; J3490

== ENCOUNTER → 2020-09-12 | Outpatient (CLI) | payer MEDICARE, BC ==
[~2020-09-12] MED LIST changes: +FERR325T14 PO; -LIDOCAINE 1%/EPI 1:100,000 20 ML VIAL. INJ ONE; -LISI-338 PO; +LISI-517 PO
[2020-09-12 14:06] LABS: BASO % 1 % (0-3); EOS # 0.2 x10^3/uL (0.0-0.7); EOS % 3 % (0-3); HEMATOCRIT 43.5 % (39.0-53.0); HEMOGLOBIN 14.7 g/dL (13.0-17.5); LYMPH # 1.4 x10^3/uL (1.0-4.8); LYMPH % 25 % (24-48); MEAN CORPUSCULAR HEMOGLOBIN 31 pg (25-35); MEAN CORPUSCULAR HGB CONC 34 g/dL (31-37); MEAN CORPUSCULAR VOLUME 93 fL (79-100); MONO # 0.6 x10^3/uL (0.0-1.1); MONO % 10 % (0-9); NEUT # 3.3 x10^3/uL (1.8-7.7); NEUT % 61 % (31-73); PLATELET COUNT 206 x10^3/uL (140-400); RED BLOOD COUNT 4.68 x10^6/uL (4.30-5.70); WHITE BLOOD COUNT 5.4 x10^3/uL (4.0-11.0)
--- NOTE | 2020-09-12 14:08 | EKG ---
[facility] [address] [place] [address] Test Date: 2020-09-12 Test Time: 14:03:15 Pat Name: LAURA NEVILLE Department: Room: Gender: Manager Statistical Programming: [place] : 1950 Requested By: DAYDAY DUNCAN Order Number: [id number] Reading MD: Gagandeep Correia MD Measurements Intervals Byron Rate: 79 P: 27 HI: 154 QRS: -23 QRSD: 88 T: 13 QT: 374 QTc: 430 Interpretive Statements SINUS RHYTHM VENTRICULAR PREMATURE COMPLEX(ES), TRIGEMINY Electronically Signed On 09-14-2020 8:42:05 CDT by Gagandeep Correia MD
[2020-09-12 14:13] LABS: PROTHROMBIN TIME PATIENT 13.1 SEC (11.7-14.0)
[2020-09-12 14:17] LABS: CREATININE 1.1 mg/dL (0.7-1.3); GFR 66.4; POTASSIUM 4.2 mmol/L (3.5-5.1)
[2020-09-13 01:17] LABS: HEMOGLOBIN A1C 5.1 % (4.8-5.6)
== END ==
LOC: SURGPAT 13:25
PROVIDERS: ATTEND Orthopaedic Surgery
DX: Z01.818 Encounter for other preprocedural examination (principal); I10 Essential (primary) hypertension; R00.8 Other abnormalities of heart beat; R94.31 Abnormal electrocardiogram [ECG] [EKG]; M17.12 Unilateral primary osteoarthritis, left knee
CPT/HCPCS: 36415; 80048; 82040; 82306; 83036; 85025; 85610; 85651; 85730; 87641; 93005

== ENCOUNTER → 2020-09-29 | Outpatient (CLI) | payer MEDICARE, BC | LOC: LAB 14:24 | PROVIDERS: ATTEND Orthopaedic Surgery | DX: Z01.812 Encounter for preprocedural laboratory examination (principal); Z20.822 Contact with and (suspected) exposure to COVID-19 | CPT/HCPCS: U0003; U0005 ==

== ENCOUNTER 2020-10-02 06:12 | Observation (INO) | payer MEDICARE, BC ==
--- NOTE | 2020-10-01 15:04 | PDOC1 ---
History and Physical Date of Admission Date of Admission 10/02/2020 Identification/Chief Complaint Chief Complaint Left knee osteoarthritis pain Source Source: Chart review, Patient History of Present Illness History of Present Illness This 70-year-old man has left knee osteoarthritis. He also has a history of a left tibia fracture with malunion, and has ankle osteoarthritis as well. He had right total knee arthroplasty recently, and the right side is doing well. History of right total knee arthroplasty 3 months ago on 02/22/20. At this point, he reports his right knee is doing very well although his left knee co ntinues to bother him. He reports mowing his yard last week which made his knee severely painful afterwards. He presents today for elective left total knee arthroplasty. Past Medical History Cardiovascular: HTN Pulmonary: No pertinent hx CENTRAL NERVOUS SYSTEM: Other GI: No pertinent hx Heme/Onc: No pertinent hx Hepatobiliary: No pertinent hx Psych: No pertinent hx Musculoskeletal: Osteoarthritis Infectious disease: No pertinent hx Renal/: No pertinent hx Endocrine: No pertinent hx Past Surgical History Past Surgical History: Hernia Repair, Total knee replacement, Other Family History Family History: Coronary Artery Disease, Hypertension Social History ALCOHOL: none Drugs: None Current Medications Current Medications Current Medications Fentanyl Citrate (Fentanyl 2ml Vial) 25 mcg PRN Q5MIN PRN IVP MILD PAIN 1-3; Start 10/02/20 at 06:00; Stop 10/03/20 at 05:59 Fentanyl Citrate (Fentanyl 2ml Vial) 50 mcg PRN Q5MIN PRN IVP MODERATE PAIN 4- 6; Start 10/02/20 at 06:00; Stop 10/03/20 at 05:59 Morphine Sulfate (Morphine Sulfate) 1 mg PRN Q10MIN PRN IVP SEVERE PAIN 7-10; Start 10/02/20 at 06:00; Stop 10/03/20 at 05:59 Ringer's Solution 1,000 ml @ 30 mls/hr Q24H IV ; Start 10/02/20 at 06:00; Stop 10/02/20 at 17:59 Hydromorphone HCl (Dilaudid) 0.5 mg PRN Q10MIN PRN IVP SEVERE PAIN 7-10, 2nd CHOICE; Start 10/02/20 at 06:00; Stop 10/03/20 at 05:59 Prochlorperazine Edisylate (Compazine) 5 mg PACU PRN PRN IVP NAUSEA, MRX1; Start 10/02/20 at 06:00; Stop 10/03/20 at 05:59 Celecoxib (CeleBREX) 400 mg 1X PREOP PRN PO PRIOR TO PROCEDURE; Start 10/02/20 at 06:00; Stop 10/02/20 at 15:00 Acetaminophen (Tylenol) 1,000 mg 1X PREOP PRN PO PRIOR TO PROCEDURE; Start 10/02/20 at 06:00; Stop 10/02/20 at 18:00 Clindamycin Phosphate 50 ml @ 100 mls/hr 1X PREOP PRN IV PRIOR TO PROCEDURE; Start 10/02/20 at 06:00; Stop 10/02/20 at 18:00 Morphine Sulfate 5 mg/Ketorolac Tromethamine 30 mg/Ropivacaine 60 ml/Epinephrine HCl 0.5 mg/Sodium Chloride 100 ml @ 100 mls/hr 1X PERIOP ONCE INT ART ; Start 10/02/20 at 06:00; Stop 10/02/20 at 06:59 Tranexamic Acid 50 ml @ 50 mls/hr 1X PERIOP ONCE INJ ; Start 10/02/20 at 06:00; Stop 10/02/20 at 06:59 Tranexamic Acid 50 ml @ 50 mls/hr 1X PERIOP ONCE INJ ; Start 10/02/20 at 08:00; Stop 10/02/20 at 08:59 Active Scripts Active Reported Ferrous Sulfate 325 Mg Tablet 325 Mg PO DAILY Aspirin 81 Mg Tab.chew 81 Mg PO DAILY Amlodipine Besylate 10 Mg Tablet 10 Mg PO HS Benazepril Hcl 20 Mg Tablet 20 Mg PO BID Calcium (Calcium Carbonate) 500 Mg Tablet 500 Mg PO DAILY Metoprolol Succinate ( Xl ) (Metoprolol Succinate) 25 Mg Tab.er.24h 25 Mg PO DAILY Vitamin D3 (Cholecalciferol (Vitamin D3)) 1,250 Mcg Capsule 2,000 Units PO DAILY [white willow bark] 400 Mg PO BID Resveratrol 50 Mg Capsule 50 Mg PO DAILY Lutein 40 Mg Capsule 40 Mg PO DAILY Vitamin C (Ascorbic Acid) 500 Mg Capsule.er 1,000 Mg PO DAILY Multiple Vitamins (Multivitamin) 1 Each Tablet 1 Each PO DAILY Atorvastatin Calcium 10 Mg Tablet 10 Mg PO HS Empire 3 Fish Oil Softgel (Empire-3 Fatty Acids/Fish Oil) 1 Each Capsule.dr 1 Each PO HS Meloxicam 7.5 Mg Tablet 1 Tab PO BID PRN Allergies Allergies: Coded Allergies: Penicillins (Verified Allergy, Intermediate, UNKNOWN CHILDHOOD, 09/12/20) Physical Exam General: Alert, Cooperative HEENT: Atraumatic Lungs: Normal air movement Heart: RRR Abdomen: Soft Extremities: Other ( The LEFT knee shows a mildly antalgic gait. There is varus alignment including severe left ankle and tibia deformity into varus. No masses. No detectable effusion. Tenderness on the joint lines. Range of motion is 5-120 degrees. There is crepitus with range of motion, and pain at the extremes of motion. The knee is stable to varus and valgus stress without subluxation or laxity. Muscle strength is slightly weak for the quadriceps 4+/5 which may be due to pain or avoidance, and does not seem neurogenic, and the muscle tone and bulk is slightly decreased. The hamstring strength is 5/5. The skin is normal with no scars, rashes, lesions or ulcers. Light touch sensation is intact. No edema and no varicosities. Dorsalis pedis pulse is intact and capillary refill is normal. ) Images Images Report reviewed and images independently reviewed, previous knee x-rays and the tib-fib x-ray. The tibia deformity is fairly far from the knee joint, so the implications for malalignment of the knee prosthesis are quite a bit less. I think we can safely do knee arthroplasty with minimal modification. [facility] [address] [place] [address] IMAGING REPORT Signed PATIENT: LAURA NEVILLE ACCOUNT: [id number] : 1950 LOCATION: [facility] AGE: 70 SEX: M EXAM STATUS: PRE CLI ORD. PHYSICIAN: DAYDAY DUNCAN MD REASON: LEFT KNEE/LOWER LEG PAIN. PROCEDURE: TIBIA FIBULA LEFT Exam Date: 08/29/2020 11:06 AM XR LT TIBIA + FIBULA Indication: Reason: LEFT KNEE/LOWER LEG PAIN. / Spl. Instructions: / History: FINDINGS/ IMPRESSION: Moderate degenerative changes are seen in the knee. Marked arthrosis is seen in the partially visualized left ankle. Healed fractures of the distal fibula and tibia are seen with multiple pins in the distal tibia. There is chronic malalignment at the healed distal fibula shaft fracture with volar angulation. No acute fracture or dislocation is seen. There is diffuse soft tissue swelling. Electronically signed by: Johan Brooks MD (08/29/2020 5:29 PM) [id number] Reports reviewed, Images independently reviewed of the bilateral knee x-rays f rom 01/17/20 EXAM: Bilateral knees, 3 views. HISTORY: Pain. COMPARISON: 09/28/2018 FINDINGS: 3 views of both knees are obtained. There is severe bilateral medial and right lateral compartment joint space narrowing with subchondral sclerosis and spurring. There is bilateral genu varus. There is moderate right and mild left patellofemoral compartment spurring. There are small left greater than right joint effusions. There are vascular calcifications. There is no fracture. IMPRESSION: 1. Severe bilateral medial and right lateral compartment predominant osteoarthritis of both knees with genu varus and small left greater than right joint effusions. 2. No acute osseous finding. Electronically signed by: Sadie Blevins MD (01/17/2020 4:47 PM) [facility]. VTE Prophylaxis Ordered VTE Prophylaxis Devices: Yes VTE Pharmacological Prophylaxi: Yes Assessment/Plan Assessment/Plan He has osteoarthritis of his left knee. We reviewed his previous x-rays together and discussed the natural history of the condition as well as risks, benefits, and alternatives to treatment. Given his failure of nonoperative management with continued severe pain and loss of function, my recommendation is left knee replacement. We discussed the potential risks of infection, neurovascular injury, fracture, bleeding, blood clots, malalignment, need for revision surgery, or other potential surgical or anesthetic complications. Specifically, we went over risks associated with his previous tibia fracture and resulting malalignment's effects on surgery and his outcome. I recommended the robotic CORI instrumentation and we discussed my reasoning. We also discussed postoperative treatment and expectations including dental antibiotic prophylaxis and residual numbness over the knee. All of his questions were answered and he desires to proceed with total knee replacement. He is here today for elective left total knee arthroplasty with robotic assistance. Justifications for Admission Other Justification DAYDAY DUNCAN MD October 01, 2020 15:04
[~2020-10-02] VITALS: Ht 170.2 cm; Wt 90.3 kg
[~2020-10-02 06:12] MED LIST changes: +ACETAMINOPHEN 500 MG TABLET PO PRN; +CELECOXIB 100 MG CAPSULE. PO PRN; +CLINDAMYCIN 900MG PREMIX 50 ML IV PRN; +HYDROmorphone 2 MG/ML VIAL IVP PRN; +IV RINGERS,LACTATED 1000ML 1,000 ML IV SCH; +LIDOCAINE 2% PF 5 ML VIAL. ONE; +MIDAZOLAM HCL/PF 2 MG/2 ML VIAL. ONE; +MORPHINE SULFATE 2 MG/ML VIAL. IVP PRN; +PROCHLORPERAZINE 10 MG/2 ML VIAL. IVP PRN; +PROPOFOL 50 ML IV ONE; +TRANEXAMIC ACID 1,000 MG in IV NS 50ML -- 1ST BAG INJ ONE; +TV=100ml MORPHINE 5 MG, KETOROLAC 30 MG, ROPIVacaine 0.5% PF 60 ML, EPINEPH... INT ART ONE; +fentaNYL PF VIAL 100 MCG/2 ML VIAL IVP PRN; +fentaNYL PF VIAL 100 MCG/2 ML VIAL ONE
[2020-10-02] MEDS ORDERED: ONDANSETRON PF 4 MG/2 ML VIAL. ONE (06:39)
[2020-10-02] MEDS ORDERED: DEXAMETHASONE SOD PHOS 4 MG/ML VIAL ONE (06:39)
[2020-10-02] MEDS ORDERED: VANCOMYCIN 1 GM VIAL. ONE ×2 (07:00→07:01)
[2020-10-02] MEDS ORDERED: TRANEXAMIC ACID in NS IVPB 0 ML ONE (07:00)
[2020-10-02] MEDS ORDERED: TOBRAMYCIN POWDER 1.2 GM VIAL. TP ONE (07:15)
[2020-10-02] MEDS ORDERED: TRANEXAMIC ACID 1,000 MG in IV NS 50ML -- 2ND BAG INJ ONE (08:00)
--- NOTE | 2020-10-02 09:52 | PDOC4 ---
Operative Note Operative Note Date of Procedure: October 02, 2020 Pre-Op Diagnosis: Unilateral primary osteoarthritis, left knee. M17.12 Post-Op Diagnosis: same Procedure: left total knee arthroplasty with patella resurfacing, robotic assisted, CPT 61059 Surgeon: Dayday Omer MD Industrial Trainer: JOSIAS Jackson Anesthesia: General EBL: 150 mL Specimens Obtained: left knee bone and soft tissue Complications: none Drains: none Tourniquet time: 64 Minutes Tourniquet Pressure: 300 mm Hg Indications for Procedure: Knee arthritis pain, affecting quality of life, unrelieved by nonoperative management Findings: Severe osteoarthritis with bone on bone contact medially with full thickness cartilage loss in the patellofemoral and lateral compartments. He has a posttraumatic distal tibial deformity, and aligning the total knee for the center of the talus would cause a significant malalignment of the knee. He is considering ankle reconstruction and osteotomy surgery at a later date. I used alternate reference points on the tibia and fibula rather than the medial and lateral malleolus, so that the knee would not be chronically malaligned. Implants: Butler [employer] Nephew Journey II Total Knee System, Size 5 left bicruciate stabilized Journey II BCS Oxinium femoral component, size 6 left Journey nonporous tibial baseplate, size 5-6 12 mm left Journey II BCS XLPE articular insert, 35 mm oval Gloria II resurfacing patellar component Procedure in Detail: The patient was identified in the preoperative holding area, and the correct left lower extremity was marked by me. The patient was taken to the operating room where the patient was anesthetized by the Department of Anesthesia. Preoperative antibiotics were given intravenously. Tranexamic acid 1 g was given intravenously for intraoperative hemostasis. A "time-out" procedure was performed. The patient was positioned supine on the operative table with a tourniquet on the upper left thigh. A left hip bump and heel bump were attached to the operating table for later intraoperative positioning. The left lower limb was thoroughly scrubbed, then sterile Chloraprep solution was applied, and the limb was draped in sterile fashion. The operating team wore exhaust ventilated hoods with GapJumpers Personal Protection Toga Zippered Peel-Away protection system. An impervious stockinet and an adhesive drape were used such that the skin was entirely covered. The limb was exsanguinated with an Esmarch bandage, and the tourniquet was inflated. A midline skin incision was made with a scalpel using the patella and tibial tubercle as landmarks. Electrocautery was used for hemost asis. My event marketing assistant used rake retractors and a laparotomy sponge. A medial parapatellar arthrotomy incision was used with extension into the distal quadriceps tendon. The patella was retracted laterally and Hohmann retractors were now used by my event marketing assistant. Excess synovium, the menisci, and the cruciate ligaments were resected sharply. A periarticular multimodal ropivacaine anesthetic injection was used in the suprapatellar pouch and distal quadriceps muscle. The patella was everted and exposed. The patella thickness was measured with a caliper, and then cut freehand with a saw, using caliper measurements to assess the resection. The lateral retinaculum was partially released from the lateral patella using electrocautery. Rongeurs were used to make sure there were no remaining exposed patellar osteophytes medially or laterally. The patella was sized, and then drilled for an oval three-peg patella component. The tibial tracker array for the CORI system was applied to the tibial crest four finger breadths below the tibial tubercle, using percutaneous incisions and bicortical pins. The femoral tracker array was applied outside of the original incision using two separate stab incisions using bicortical pins. Checkpoint verification pins were applied to the femur and tibia. Usually a this portion of the surgery, I use the point probe to localize and identify the medial and lateral malleoli. In this patient because of the severe deformity near the ankle joint, I used the medial tibia and the fibula, about 8 to 10 cm above the joint line for more accurate knee alignment. The patient is likely going to have ankle reconstruction surgery and I did not want to malalign the total knee for the rest of his life to accommodate an ankle deformity that may only be temporary. I did slightly adjust the tibial component for the deformity, using 1 degree of increased slope and 1 degree of increased valgus alignment of the tibial component, due to the distal tibial deformity. The center of the tibia was noted at the anterior cruciate ligament insertion and stored. The center of the femur was marked at the intersection of Whitesidess line with the transepicondylar axis. The hip center calculation was performed with range of motion of the hip. The femur neutral position was identified, and simulated weightbearing was performed with axial compression on the foot. Range of motion without stress was performed and the data collected. Range of motion with valgus stress, and range of motion with varus stress data collection was a lso performed. Rotational references include the Whitesidess line, and the trans-epicondylar axis. The femoral articular surface was now mapped in 3 dimensions using the point probe and digital data collected. The tibial condyle articular surfaces and co rtical edges were mapped in 3 dimensions using the point probe including the medial and lateral tibial plateau. Implant planning was now performed on-screen with manipulation of the implant sizes, cut thicknesses and gaps, component rotation, component flexion/extension and component varus/valgus until satisfactory ligament balance, alignment and stability of the knee was expected throughout the range of motion. No additional releases were required. My event marketing assistant held a Hohmann retractor, a medial Z-retractor, and an Army-Coalton retractor to protect the medial and lateral collateral ligaments, the patellar tendon, the skin and the other soft tissues. The point probe was used to confirm the location of the checkpoint verification pins. The distal femoral morales rface was now prepared using CORI handpiece for bone removal to the previously planned distal femoral resection. The crosshairs at the pin locations were marked by using a mallet and the point probe for definitive location. A 5-in-1 Journey II cutting guide was then applied and the position was checked with the virtual ángel wing from the CORI to ensure proper placement as the pins were applied. The posterior, anterior, and all chamfer cuts were made with the oscillating saw. Excess bone was removed with an osteotome and rongeurs. The tibial cutting guide was applied, positioned using the CORI virtual ángel wing, and secured to the upper tibia using three pins at the previously planned location. The virtual ángel wing was used to confirm the resection depth, slope and coronal alignment. The upper tibia was cut made with an oscillating saw. My event marketing assistant held Hohmann retractors and a posterior cruciate ligament retractor to protect the medial and lateral collateral ligaments, the patellar tendon, the skin, the peroneal nerve and the other soft tissues. The upper tibia was sized with a trial baseplate. The posterior compartment was cleared of osteophytes and loose bodies. The periarticular anesthetic injection was used in the posterior compartment. The box cut for a posterior stabilized component was made. A preliminary reduction was performed with a trial femur, trial tibial baseplate and trial polyethylene. The CORI system was used to confirm range of motion, and postoperative stressed gap assessment. The stability was assessed using different thicknesses of tibial articular surface to find satisfactory stability and good range of motion. The rotation of the tibial component was marked on the upper tibia. Final trial reduction was now performed verifying patella tracking and tibiofemoral stability and alignment. The bone pins and tracker arrays were removed, and the checkpoint verification pins were removed. The tibia preparation was completed with a drill, saw, and fin punch at the previously noted rotation. The final implants were verified and opened. Outer gloves were changed by the operating team. Betadine lavage was used. The bone cuts were irrigated with saline using the Dattch InterPulse device and then dried with suction and laparotomy sponges. Two packages of Ubtler + Nephew Rally HV bone cement were mixed in powdered form with Vancomycin 1gm and Tobramycin 1.2 gm, and then vacuum-mixed with the monomer, and placed into a cement gun. The cut surfaces of the bone were thoroughly dried with suction and with laparotomy sponges for cement interdigitation. The final components were cemented into place. The knee was kept at full extension while the cement hardened, and excess cement was removed. Tranexamic acid 1 g was redosed intravenously for additional intraoperative hemostasis. The tourniquet was released, and electrocautery was used for hemostasis. A final periarticular anesthetic injection was used for pain relief. The bone pin sites on the tibial crest were closed with #3-0 Nylon sutures. A final check of [id number] and stability was made, and the polyethylene implant final size was chosen. The polyethylene implant was secured to the tibial baseplate, and the knee was reduced a final time and range of motion and stability was confirmed. Thorough irrigation was used. No drains were used. Topical Vancomycin 1 gm was used during the closure. The arthrotomy was closed with interrupted [id number] #1 Vicryl suture. The subcutaneous tissues were approximated initially with #2-0 Vicryl inverted interrupted sutures by my event marketing assistant. Next the subcuticular layer was approximated in a running fashion with #3-0 STRATAFIX suture by my event marketing assistant. The skin incision was then covered and reinforced by my event marketing assistant with Acticoat, followed by a MERARI single use negative pressure wound therapy dressing Soft roll and an Puma wrap were applied. Needle and sponge counts were correct. There were no apparent complications. The patient returned to the recovery room in stable condition. DAYDAY OMER MD October 02, 2020 09:52
[2020-10-02] MEDS ORDERED: PROCHLORPERAZINE 5 MG TABLET. PO PRN (10:00)
[2020-10-02] MEDS ORDERED: METOCLOPRAMIDE HCL 10 MG/2 ML VIAL. IVP PRN (10:00)
[2020-10-02] MEDS ORDERED: MORPHINE SULFATE 4 MG/ML VIAL. IVP PRN (10:00)
[2020-10-02] MEDS ORDERED: CALCIUM CARBONATE 500 MG TAB.CHEW PO PRN (10:00)
[2020-10-02] MEDS ORDERED: 0.9 % SODIUM CHLORIDE 10 ML DISP.SYRIN. IV PRN (10:00)
[2020-10-02] MEDS ORDERED: IV NORMAL SALINE 1000ML BAG 1,000 ML IV SCH (10:00)
[2020-10-02] MEDS ORDERED: fentaNYL PF VIAL 100 MCG/2 ML VIAL IVP PRN ×2 (10:00)
[2020-10-02] MEDS ORDERED: diphenhydrAMINE 50 MG/ML VIAL IVP PRN (10:00)
[2020-10-02] MEDS ORDERED: MORPHINE SULFATE 2 MG/ML VIAL. IVP PRN (10:00)
[2020-10-02] MEDS ORDERED: ZOLPIDEM 5 MG TABLET. PO PRN (10:00)
[2020-10-02] MEDS ORDERED: DEXTROSE 50% 25 GM / 50ML DISP.SYRIN. IV PRN (10:00)
--- NOTE | 2020-10-02 10:18 | RAD ---
Study: XR KNEE_LT 1-2 VIEWS Indication: Postoperative radiographs. Comparison: 08/29/2020 Findings: Status post total knee arthroplasty. No periprosthetic fracture. The hardware appears properly positi oned. Normally located patella. Vascular calcifications. Soft tissue gas relating to surgery. No unexpected retained radiopaque forei gn body. Impression: Unremarkable immediate postoperative radiograph status post total left knee arthroplasty. Electronically signed by: MARIA M AC MD (10/02/2020 10:15 AM) [id number]
[2020-10-02] MEDS ORDERED: oxyCODONE/APAP 5/325 1 TAB TABLET PO PRN (10:45)
--- NOTE | 2020-10-02 10:54 | NUR ---
Arrived to unit by bed from PACU. Awake with no c/o at this time. Left leg elevated on pillow with ice pack. Able to wiggle toes easily, cool touch and pedal pulse +. IVF's intact and infusing. O2 at 2l per n/c sating 90%. Encourage to us IS. O2 increased to 3l per n/c. Oriented to room and controls. Side rails up x's 2 with call light in reach. at bedside. Cont. monitor.
[2020-10-02 11:00] VITALS: BP 100/65
[2020-10-02] MEDS: METOPROLOL SUCC 24HR ER 25 MG TAB.ER.24H. PO SCH (11:00)
[2020-10-02 11:33] VITALS: BP 111/65
[2020-10-02 12:00] VITALS: BP 107/73
[2020-10-02] MEDS: ONDANSETRON ODT 4 MG TAB.RAPDIS. PO SCH ×2 (12:00→17:56)
[2020-10-02] MEDS: CLINDAMYCIN 900MG PREMIX 50 ML IV SCH ×2 (12:17→17:54)
[2020-10-02] MEDS: MULTIVITAMIN with MINERAL TABLET. PO SCH (12:20)
[2020-10-02] MEDS: SENNOSIDES/DOCUSATE 8.6/50MG TABLET. PO SCH (12:20)
[2020-10-02] MEDS: ONDANSETRON PF 4 MG/2 ML VIAL. IVP SCH ×2 (12:20→17:55)
[2020-10-02] MEDS: oxyCODONE/APAP 5/325 1 TAB TABLET PO PRN ×3 (12:20→21:19)
[2020-10-02 12:30] VITALS: BP 96/67
--- NOTE | 2020-10-02 17:56 | NUR ---
No Zofran given, pt taking po fluids and tolerating diet well.
[2020-10-02 18:06] VITALS: BP 113/64
[2020-10-02] MEDS: ATORVASTATIN CALCIUM 10 MG TABLET. PO SCH (21:18)
[2020-10-02] MEDS: ASPIRIN ENTERIC COATED 325 MG TABLET.DR. PO SCH (21:18)
[2020-10-02] MEDS: LISINOPRIL 20 MG TABLET PO SCH (21:19)
[2020-10-02] MEDS: amLODIPine BESYLATE 10 MG TABLET PO SCH (21:20)
[2020-10-02 23:01] VITALS: BP 116/72
[2020-10-03] MEDS: ONDANSETRON ODT 4 MG TAB.RAPDIS. PO SCH ×2 (00:05→05:41)
[2020-10-03] MEDS: ONDANSETRON PF 4 MG/2 ML VIAL. IVP SCH ×2 (00:05→05:40)
[2020-10-03] MEDS: CLINDAMYCIN 900MG PREMIX 50 ML IV SCH (01:16)
[2020-10-03 02:57] VITALS: BP 102/69
[2020-10-03] MEDS: oxyCODONE/APAP 5/325 1 TAB TABLET PO PRN (05:40)
[2020-10-03] MEDS ORDERED: MAGNESIUM HYDROXIDE 2,400 MG/30 ML ORAL.SUSP. PO PRN (06:00)
[2020-10-03 06:27] VITALS: BP 107/67
[2020-10-03] MEDS: CHOLECALCIFEROL (VITAMIN D3) 1,000 UNIT TABLET PO SCH (08:27)
[2020-10-03] MEDS: ASCORBIC ACID 1,000 MG TABLET PO SCH (08:27)
[2020-10-03] MEDS: SENNOSIDES/DOCUSATE 8.6/50MG TABLET. PO SCH (08:27)
[2020-10-03] MEDS: ASPIRIN ENTERIC COATED 325 MG TABLET.DR. PO SCH ×2 (08:27→20:18)
[2020-10-03] MEDS: MULTIVITAMIN with MINERAL TABLET. PO SCH (08:27)
[2020-10-03] MEDS: CALCIUM CARBONATE 500 MG TABLET PO SCH (08:28)
[2020-10-03] MEDS: CELECOXIB 100 MG CAPSULE. PO SCH (08:28)
[2020-10-03] MEDS: METOPROLOL SUCC 24HR ER 25 MG TAB.ER.24H. PO SCH (08:29)
[2020-10-03] MEDS ORDERED: NON FORMULARY ITEM (Lutein 40 MG) PO SCH (09:00)
[2020-10-03 10:09] LABS: HEMATOCRIT 39.9 % (39.0-53.0); HEMOGLOBIN 13.3 g/dL (13.0-17.5)
[2020-10-03 12:00] VITALS: BP 143/83
[2020-10-03] MEDS ORDERED: ONDANSETRON PF 4 MG/2 ML VIAL. IVP PRN (12:00)
[2020-10-03] MEDS ORDERED: ONDANSETRON ODT 4 MG TAB.RAPDIS. PO PRN (12:00)
[2020-10-03] MEDS: LISINOPRIL 20 MG TABLET PO SCH ×2 (12:21→20:22)
[2020-10-03] MEDS: HYDROcodone/APAP 5/325MG 1 TAB TABLET PO PRN ×3 (12:22→18:21)
--- NOTE | 2020-10-03 12:44 | PDOC ---
PROGRESS NOTES Date of Service DATE: 10/03/20 TIME: 12:42 Subjective Subjective Doing well, but not yet safe ambulating with walker. Objective Vital Signs Vital Signs Date Time Temp Pulse Resp B/P (MAP) Pulse Ox O2 Delivery O2 Flow Rate FiO2 10/03/20 12:22 Room Air 10/03/20 12:21 67 143/83 10/03/20 06:27 98.1 16 95 98.1 10/02/20 12:30 3.0 Physical Exam MERARI dressing working. MERARI still covered by RANI wrap. Calf soft and NT. Homans neg. Able to DF and plantarflex foot with no evidence of neurovascular injury nor compartment syndrome. Moderate swelling as expected. Labs Laboratory Tests Test 10/03/20 09:35 Hemoglobin 13.3 g/dL (13.0-17.5) Hematocrit 39.9 % (39.0-53.0) Mean Corpuscular Hemoglobin Concent 33 g/dL (31-37) Laboratory Tests Test 10/03/20 09:35 Hemoglobin 13.3 g/dL (13.0-17.5) Hematocrit 39.9 % (39.0-53.0) Mean Corpuscular Hemoglobin Concent 33 g/dL (31-37) Imaging Postop x-rays and report reviewed by me. Satisfactory TKA without apparent complications. PATIENT: LAURA NEVILLE ACCOUNT: [id number] : 1950 LOCATION: [address] [place] [address] AGE: 70 SEX: M EXAM STATUS: ADM IN ORD. PHYSICIAN: DAYDAY DUNCAN MD REASON: POST OP PROCEDURE: KNEE LEFT 2V Study: XR KNEE_LT 1-2 VIEWS Indication: Postoperative radiographs. Comparison: 08/29/2020 Findings: Status post total knee arthroplasty. No periprosthetic fracture. The hardware appears properly positioned. Normally located patella. Vascular calcifications. Soft tissue gas relating to surgery. No unexpected retained radiopaque foreign body. Impression: Unremarkable immediate postoperative radiograph status post total left knee arthroplasty. Electronically signed by: MARIA M AC MD (10/02/2020 10:15 AM) [id number] Assessment Assessment POD 1 after TKA Plan Plan of Care Needs to stay in hospital for safe ambulation at home. Continue DVT prophylaxis and PT. Discharge planning. Justicifation of Admission Dx: Justifications for Admission: Justification of Admission Dx: Yes DAYDAY DUNCAN MD October 03, 2020 12:44
[2020-10-03] MEDS ORDERED: BISACODYL 10 MG SUPP.RECT. PR PRN (16:00)
[2020-10-03 17:43] VITALS: BP 130/73
[2020-10-03] MEDS: ATORVASTATIN CALCIUM 10 MG TABLET. PO SCH (20:19)
[2020-10-03] MEDS: amLODIPine BESYLATE 10 MG TABLET PO SCH (20:22)
[2020-10-04] MEDS: HYDROcodone/APAP 5/325MG 1 TAB TABLET PO PRN ×3 (02:28→13:23)
[2020-10-04 06:45] VITALS: BP 140/86
[2020-10-04] MEDS: ASPIRIN ENTERIC COATED 325 MG TABLET.DR. PO SCH (08:48)
[2020-10-04] MEDS: SENNOSIDES/DOCUSATE 8.6/50MG TABLET. PO SCH (08:48)
[2020-10-04] MEDS: CELECOXIB 100 MG CAPSULE. PO SCH (08:48)
[2020-10-04] MEDS: CALCIUM CARBONATE 500 MG TABLET PO SCH (08:48)
[2020-10-04] MEDS: ASCORBIC ACID 1,000 MG TABLET PO SCH (08:48)
[2020-10-04] MEDS: CHOLECALCIFEROL (VITAMIN D3) 1,000 UNIT TABLET PO SCH (08:49)
[2020-10-04] MEDS: MULTIVITAMIN with MINERAL TABLET. PO SCH (08:49)
[2020-10-04] MEDS: LISINOPRIL 20 MG TABLET PO SCH (08:52)
[2020-10-04] MEDS: METOPROLOL SUCC 24HR ER 25 MG TAB.ER.24H. PO SCH (08:52)
[2020-10-04 12:39] LABS: HEMATOCRIT 38.4 % (39.0-53.0); HEMOGLOBIN 12.8 g/dL (13.0-17.5)
--- NOTE | 2020-10-04 14:41 | PDOC ---
PROGRESS NOTES Date of Service DATE: 10/04/20 TIME: 14:41 Subjective Subjective Doing well. Planning for discharge today. Objective Vital Signs Vital Signs Date Time Temp Pulse Resp B/P (MAP) Pulse Ox O2 Delivery O2 Flow Rate FiO2 10/04/20 13:23 Room Air 10/04/20 08:52 94 134/86 10/04/20 06:45 97.9 20 94 97.9 10/02/20 12:30 3.0 Physical Exam MERARI dressing changed. Incision benign. Labs Laboratory Tests Test 10/03/20 09:35 10/04/20 12:20 Hemoglobin 13.3 g/dL (13.0-17.5) 12.8 g/dL (13.0-17.5) Hematocrit 39.9 % (39.0-53.0) 38.4 % (39.0-53.0) Mean Corpuscular Hemoglobin Concent 33 g/dL (31-37) 33 g/dL (31-37) Laboratory Tests Test 10/04/20 12:20 Hemoglobin 12.8 g/dL (13.0-17.5) Hematocrit 38.4 % (39.0-53.0) Mean Corpuscular Hemoglobin Concent 33 g/dL (31-37) Assessment Assessment POD #2 after TKA Plan Plan of Mcfp today. Oral pain meds. Aspirin BID for DVT prophylaxis. Follow up with my office next week. Home Health PT. Justicifation of Admission Dx: Justifications for Admission: Justification of Admission Dx: Yes DAYDAY DUNCAN MD October 04, 2020 14:41
--- NOTE | 2020-10-04 14:46 | PDOC3 ---
Discharge Summary Visit Information Date of Admission: October 02, 2020 Date of Discharge: October 04, 2020 Final Diagnosis Osteoarthritis left knee Aftercare after left total knee arthroplasty Brief Hospital Course Allergies Allergies Coded Allergies Type Severity Reaction Last Updated Verified Penicillins Allergy Intermediate UNKNOWN CHILDHOOD 09/12/20 Yes Vital Signs Vital Signs Date Time Temp Pulse Resp B/P (MAP) Pulse Ox O2 Delivery O2 Flow Rate FiO2 10/04/20 13:23 Room Air 10/04/20 08:52 94 134/86 10/04/20 06:45 97.9 20 94 97.9 Lab Results Laboratory Tests Test 10/03/20 09:35 10/04/20 12:20 Hemoglobin 13.3 g/dL (13.0-17.5) 12.8 g/dL (13.0-17.5) Hematocrit 39.9 % (39.0-53.0) 38.4 % (39.0-53.0) Mean Corpuscular Hemoglobin Concent 33 g/dL (31-37) 33 g/dL (31-37) Laboratory Tests Test 10/04/20 12:20 Hemoglobin 12.8 g/dL (13.0-17.5) Hematocrit 38.4 % (39.0-53.0) Mean Corpuscular Hemoglobin Concent 33 g/dL (31-37) Brief Hospital Course 70 year old who presented with knee osteoarthritis, for elective total knee arthroplasty. The patient underwent total knee arthroplasty under general anesthesia the day of admission. Perioperative antibiotics and DVT prophylaxis were used. Postoperatively physical therapy and case management were consulted. The patient progressed and is stable for discharge. Discharge Information Condition at Discharge: Stable Follow Up: Weeks Disposition/Orders: D/C to Home w/ HH Scheduled Amlodipine Besylate (Amlodipine Besylate), 10 MG PO HS, (Reported) Ascorbic Acid (Vitamin C), 1,000 MG PO DAILY, (Reported) Aspirin (Aspirin), 81 MG PO DAILY, (Reported) Atorvastatin Calcium (Atorvastatin Calcium), 10 MG PO HS, (Reported) Benazepril Hcl (Benazepril Hcl), 20 MG PO BID, (Reported) Calcium Carbonate (Calcium), 500 MG PO DAILY, (Reported) Cholecalciferol (Vitamin D3) (Vitamin D3), 2,000 UNITS PO DAILY, (Reported) Ferrous Sulfate (Ferrous Sulfate), 325 MG PO DAILY, (Reported) Lutein (Lutein), 40 MG PO DAILY, (Reported) Metoprolol Succinate (Metoprolol Succinate ( Xl )), 25 MG PO DAILY, (Reported) Multivitamin (Multiple Vitamins), 1 EACH PO DAILY, (Reported) Herman-3 Fatty Acids/Fish Oil (Herman 3 Fish Oil Softgel), 1 EACH PO HS, (Reported) Resveratrol (Resveratrol), 50 MG PO DAILY, (Reported) [white willow bark], 400 MG PO BID, (Reported) Scheduled PRN Meloxicam (Meloxicam), 1 TAB PO BID PRN for PAIN, (Reported) Patient Instructions Patient Instructions Continue to weight bearing as tolerated with walker. Keep MERARI dressing intact and dry. Cut off MERARI "tail" and throw away battery pack on the 7th day after surgery. Tape down MERARI tail Leave MERRAI dressing intact otherwise. . Continue enteric coated aspirin 325 mg by mouth twice a day for 30 days to prevent blood clots. I also prescribed omeprazole 20 mg daily for 30 days to help prevent stomach ulcers while taking meloxicam plus higher dose aspirin than usual. Justicifation of Admission Dx: Justifications for Admission: Justification of Admission Dx: Yes DAYDAY DUNCAN MD October 04, 2020 14:46
--- NOTE | 2020-10-04 14:48 | SNU/HH DC ---
DISCHARGE WITH HOME HEALTH DISCHARGE INFORMATION: Discharge Date: October 04, 2020 Final Diagnosis: Left knee osteoarthritis Aftercare after left total knee arthroplasty Condition on Discharge: Stable HOME HEALTH: Face to Face: I certify this patient is under my care and that I, or a nurse practitioner or physician's optometry assistant working with me, had a face to face encounter that meets the physician face to face encounter requirements with this patient on 10/04/2020 Medical Complications: S/P Joint Replacement RN For Eval/Treatment: No Physical Therapy For: Evalulation/Treatment Occupational Therapy For: Evaluation/Treatment Pt Meets Homebound Status: Unsteady balance w/ amb,, Limited distance walking POST DISCHARGE ORDERS: Activity Instructions for Disc: Activity as tolerated, Avoid exertion Weight Bearing Status after Di: No restrictions, Full weight bearing Bathing Instructions: Shower-keep dressing dry, No Tub Bath until see DIET AFTER DISCHARGE: Regular Wound/Incision Care: Ice to area for comfort, Do not change dressing FOLLOW-UP: Follow Up With: Dr. Omer on 10/09 at 0830 am [phone] Additional Instructions: I sent prescriptions to the pharmacy for acetaminophenhydrocodone 5/325 1-2 p.o. every 4 hours as needed pain maximum 6/day. I also sent omeprazole 20 mg p.o. daily for 30 days to help prevent stomach ulcers while taking meloxicam and aspirin 325 twice a day. TREATMENT/EQUIPMENT ORDERS: Adaptive Equipment Issued: None CERTIFICATION STATEMENT: Certification Statement: Certification Statement: Based on the above finding, I certify that this patient is confined to the home and needs intermittent chcf care, physical therapy and/or speech therapy, or continues to need occupational therapy.~ This patient is under my care, and I have initiated the establishment of the plan of care.~ This patient will be followed by myself or a community physician who will periodically review the plan of care. Home Meds Reported Medications Ferrous Sulfate (FERROUS SULFATE) 325 Mg Tablet, 325 MG PO DAILY for IRON SUPPLEMENT , TAB 09/12/20 Aspirin (ASPIRIN) 81 Mg Tab.chew, 81 MG PO DAILY for VITAMIN , TAB.CHEW 09/12/20 Amlodipine Besylate (AMLODIPINE BESYLATE) 10 Mg Tablet, 10 MG PO HS for HIGH BLOOD PRESSURE , TAB 09/12/20 Benazepril Hcl (BENAZEPRIL HCL) 20 Mg Tablet, 20 MG PO BID for HIGH BLOOD PRESSURE , TAB 09/12/20 Calcium Carbonate (CALCIUM) 500 Mg Tablet, 500 MG PO DAILY for SUPPLEMENT , TAB 03/24/20 Metoprolol Succinate (METOPROLOL SUCCINATE ( XL )) 25 Mg Tab.er.24h, 25 MG PO DAILY for FOR HYPERTENSION, #30 TAB 0 Refills 02/25/20 Cholecalciferol (Vitamin D3) (Vitamin D3) 1,250 Mcg Capsule, 2000 UNITS PO DAILY for TREAT LOW VIT D LEVEL, CAP 02/16/20 [white willow bark] No Conflict Check, 400 MG PO BID 02/09/20 Resveratrol (RESVERATROL) 50 Mg Capsule, 50 MG PO DAILY for supplement, CAP 02/09/20 Lutein (LUTEIN) 40 Mg Capsule, 40 MG PO DAILY for supplement, CAP 02/09/20 Ascorbic Acid (VITAMIN C) 500 Mg Capsule.er, 1000 MG PO DAILY for supplement, C AP.SR 02/09/20 Multivitamin (MULTIPLE VITAMINS) 1 Each Tablet, 1 EACH PO DAILY for supplement, TAB 02/09/20 Atorvastatin Calcium (ATORVASTATIN CALCIUM) 10 Mg Tablet, 10 MG PO HS for FOR CHOLESTEROL, #30 TAB 0 Refills 02/09/20 Harrod-3 Fatty Acids/Fish Oil (OMEGA 3 FISH OIL SOFTGEL) 1 Each Capsule.dr, 1 EACH PO HS for supplement, CAP 02/09/20 Meloxicam (MELOXICAM) 7.5 Mg Tablet, 1 TAB PO BID PRN for PAIN, #30 TAB 2 Refills 07/23/16 DAYDAY OMER MD October 04, 2020 14:48
[2020-10-04 15:34] VITALS: BP 113/64
--- NOTE | 2020-10-04 16:30 | NUR ---
Discharge instructions given with prescriptions sent via electronic to pharmacy. Answered questions and concerns. Both pt and spouse verbalized understanding. Pt discharged home with home health. Escorted out by w/c.
--- NOTE | 2020-10-04 17:13 | PATHOLOGY ---
[facility] Accession Number: [id number] . 01 Material submitted: . knee - LEFT KNEE BONE AND TISSUE. Modifiers: left . 01 Clinical history: . OA LEFT KNEE ARTHROPLASTY UNILATERAL PRIMARY OSTEOA... . 02 Diagnosis: Segments of bone and articular cartilage and focal attached synovial tissue, left total knee arthroplasty: - Focally advanced degenerative arthritis. - Mild chronic synovitis. . (JP:mm; 10/04/2020) [facility] 10/04/2020 1654 Local . 02 Electronically signed: . Preet Peña MD, Pathologist NPI- [id number] . 01 Gross description: . The specimen is received in formalin, labeled "Devan Acevedo, left knee bone and tissue" received is a 8.5 x 7 x 3.1 cm aggregate of multiple irregular to rounded fragments of bone consistent with a knee joint. The articular surfaces are worn, irregular and eroded. On sectioning, de paz-white areas of eburnation are noted. Trial Consultant, decalcified sections are submitted in one cassette A1.([facility]; 10/02/2020) . IVANNA/IVANNA 10/02/2020 1923 Local . 02 Pathologist provided ICD-10: M17.12, M65.862 . 02 CPT . 071393, [id number] Specimen Comment: A courtesy copy of this report has been sent to [phone], [phone] Specimen Comment: [id number] Specimen Comment: Report sent to / DR ROCK Specimen Comment: A duplicate report has been generated due to demographic updates. Performed at: 01 [facility] [address] [place] [address] [address], [place], [place] [id number] MD Marcelo Rodríguez MD Phone: [phone] Performed at: [address] [id number] MD Preet Peña MD Phone: [phone]
== END 2020-10-04 16:30 | disposition home or self-care (01) ==
LOC: SURG 06:12 → 4 SOUTHEST 09:52
PROVIDERS: ADMIT Orthopaedic Surgery; ATTEND Orthopaedic Surgery
DX: M17.12 Unilateral primary osteoarthritis, left knee (principal); I10 Essential (primary) hypertension; Z96.651 Presence of right artificial knee joint; Z79.899 Other long term (current) drug therapy; Z98.890 Other specified postprocedural states; Z79.82 Long term (current) use of aspirin
CPT/HCPCS: 27447; 36415; 73560; 85014; 85018; 86850; 86900; 86901; 88305; 88311; 96365; 96366; 96375; 97116; 97150; 97162; 97166; 97530; 97535; A4213; A4628; A4930; A6253; A6258; A6450; C1713; C1776; G0378; G0379; J0171; J1100; J1885; J2270; J2405; J2704; J2795; J3010; J3260; J3370; J3490; J7030; S2900; A6454; J2250